=== PATIENT | male | born 1990 | race Caucasian/White ===

== ENCOUNTER 2016-12-09 17:22 | Inpatient (IN) | payer OTHER ==
[~2016-12-09] VITALS: Ht 172.7 cm; Wt 76.0 kg
[~2016-12-09 17:22] MED LIST: AMPH30TA3 PO; AMT25T PO; CIPR-231 PO; DEXT30TA12 PO; DIVA500T14 PO; Dexamethasone 4 mg/mL Inj ONE; GUAN1TAB26 PO; LURA120T PO; METR250T PO; OXYC5TAB72 PO; Ondansetron 2 mg/mL 2 mL Inj ONE; Propofol 10,000 mCg/mL 20 mL Inj ONE
[2016-12-09 17:26] VITALS: BP 141/85; PULSE 116; RESP 16; O2SAT 100
[2016-12-09 18:10] LABS: BASOPHILS % (AUTO) 0.1 % (0-3); EOSINOPHILS % (AUTO) 0.2 % (0-5); MONOCYTES % (AUTO) 7.2 % (4-12); Mean Corpuscular Hemoglobin 30.2 pg (27.0-35.0); Mean Corpuscular Volume 92.3 fL (81-100); NEUTROPHILS % (AUTO) 79.6 % (40-74); Platelet Count 355 bil/L (150-400)
[2016-12-09 18:31] LABS: Magnesium 1.8 mg/dL (1.6-2.6)
[2016-12-09 20:40] VITALS: BP 114/73; PULSE 121; RESP 22; O2SAT 97
--- NOTE | 2016-12-09 20:59 | ED.REPORT ---
HPI-General Illness Date of Service Dec 09, 2016 ED Provider: Steve Loving MD Patient is a 26 year old male with a history of Crohn's disease with a history of bowel section, with a known john-rectal fistulas with seton drain who presents to the ED with increased pain and drainage associated with his fistula since November 27. He reports associated intermittent fever. The drainage ranges from clear, to green, to bloody. The seton was placed by Dr. Tejada in the end of October, and he is the surgeon that follows his case. This was placed in order to prevent recurrent abscess. He is seen by Dr. Keller for GI.He is not currently on any steroids. He denies nausea, vomiting, abdominal pain, or other symptoms. Nursing Notes Stated Complaint: FISTULA Chief Complaint: General Complaint Nursing Notes Reviewed: Yes Allergies: Coded Allergies: adalimumab (Verified Allergy, Unknown, 09/30/16) Scheduled Amitriptyline (Amitriptyline) 25 Mg Tab 25 MG PO HS Amphet Asp/Amphet/D-Amphet (Adderall) 30 Mg Tablet 30 MG PO BID Ciprofloxacin (Cipro) 500 Mg Tablet 500 MG PO BID Dextroamphetamine/Amphetamine (Amphetamine Mixed Salts) 30 Mg Tablet 30 MG PO BID Divalproex ER (Divalproex ER) 500 Mg Tab.er.24h 1,000 MG PO DAILY Guanfacine ER (Guanfacine ER) 1 Mg Tab.er.24h 1 MG PO DAILY Lurasidone (Latuda) 120 Mg Tablet 120 MG PO DAILY Metronidazole (Flagyl) 250 Mg Tablet 500 MG PO Q8H Scheduled PRN oxyCODONE (oxyCODONE) 5 Mg Tablet 5 MG PO Q4H PRN PRN For Pain General Time Seen by MD: 20:37 Chief Complaint Other (john-rectal pain and drainage) Hx Obtained From: Patient Arrived By: Walk-in Sudden in Onset?: No Onset Occurred: More than a week ago... (2 weeks) Symptom Duration: Waxes and wanes Quality: Painful Severity: Current: Moderate Severity: Maximum: Severe Recent Healthcare: No recent doctor visit, No recent hospitalization, Previous surgery Similar Sx Previous: Yes Past Medical History Past Medical History Notes: GI: Dr. Dewey Perirectal Abscess -> OR 09/2014 Past Medical History Crohn's disease with bowel resection History of perirectal abscess and fissures Anxiety ADHD Past Surgical History Ileocolonic resection in 2005 for Crohn's Perianal abscess drainage Colonoscopy in 2013 seton drain placed October 2016 Family History Autoimmune diseases in mother's side of the family Reports: Cancer Smoking History Former Smoker Social History Alcohol Use: "Social" Drug Use: THC Other Social History: Good social support, Local resident Occupation Student Ambulatory Status Independent Review of Systems + rectal discharge Full Review of Systems Constitutional: Reports: Fever, Denies: Chills GI: Reports: Rectal pain, Denies: Nausea, Vomiting Complete sys rev & neg: except as marked. Physical Exam Vital Signs Vital Signs Date Time Temp Pulse Resp B/P Pulse Ox O2 Delivery O2 Flow Rate FiO2 12/09/16 20:40 38.1 121 22 114/73 97 Room Air 12/09/16 17:26 37.2 116 16 141/85 100 Room Air Initial VS: Reviewed Head / Eyes: Atraumatic, Normocephalic, PERRL ENT: Conjunctiva normal, No scleral icterus Neck: Supple, Full range of motion Respiratory: No respiratory distress Extremities: Vascular intact, Neuro intact Skin: Warm, Dry, No cyanosis Neurologic: Alert, Oriented, Nonfocal Psychiatric: Mood/affect normal, Behavior normal, Normal thought content General/Constitutional: Awake, Alert, No acute distress Cardiovascular: Heart rate NL, Cap refill not delayed Abdomen: Soft, Non-tender, No guarding, No rebound Rectum / Perineum: No gross blood two fistulas left john-rectal area. 3x1cm area of firmless left john-rectal area, adjacent to the lower fistula at 9 o-clock. tender on rectal exam, no abscess palpated on rectal exam. Interpretation & Diagnostics Lab Results Interpretation Result Diagram: 12/09/16 1756 12/09/16 1756 Test 12/09/16 17:56 12/09/16 18:05 12/09/16 20:32 White Blood Count 16.6th/mm3 (3.8-10.1) Red Blood Count 4.40mil/mm3 (4.40-5.80) Hemoglobin 13.3g/dL (13.8-17.2) Hematocrit 40.6% (41.0-50.0) Mean Corpuscular Volume 92.3fL (81-100) Mean Corpuscular Hemoglobin 30.2pg (27.0-35.0) Mean Corpuscular Hemoglobin Concent 32.8% (32.0-37.0) Red Cell Distribution Width 14.8% (12.3-15.4) Platelet Count 355bil/L (150-400) Neutrophils (%) (Auto) 79.6% (40-74) Lymphocytes (%) (Auto) 12.7% (14-46) Monocytes (%) (Auto) 7.2% (4-12) Eosinophils (%) (Auto) 0.2% (0-5) Basophils (%) (Auto) 0.1% (0-3) Sodium Level 136mEq/L (134-144) Potassium Level 4.4mEq/L (3.5-5.2) Chloride Level 96mEq/L (97-108) Carbon Dioxide Level 27mmol/L (18-29) Blood Urea Nitrogen 7mg/dL (6-20) Creatinine 0.69mg/dL (0.76-1.27) Estimat Glomerular Filtration Rate 145mL/min (>59) Glucose Level 133mg/dL (60-99) Calcium Level 9.2mg/dL (8.5-10.1) Magnesium Level 1.8mg/dL (1.6-2.6) Total Bilirubin 0.3mg/dL (0.0-1.2) Aspartate Amino Transf (AST/SGOT) 17U/L (0-50) Alanine Aminotransferase (ALT/SGPT) 16U/L (0-44) Alkaline Phosphatase 94U/L (25-150) Total Protein 7.9g/dL (6.4-8.4) Albumin 4.3g/dL (3.4-5.0) Lipase 14U/L (13-60) Lactic Acid Level 2.7mmol/L (0.4-2.0) Hold Gutierrez Top Tube Received (Received) Hold Urine Received (Received) CT Abd / Pelvis Interpretation IMPRESSION: Postinflammatory scarring is present in the perirectal/perianal soft tissues as has been previously the case in this patient with documented multiple bilateral perirectal abscess and fistula formation. Currently a definite drainable fluid collection is not seen. Please note that MR scanning without and with contrast provides a more accurate assessment for possible early phase of recurrent disease, and prior MR scanning of the pelvis has been performed for this patient as recently as 09/27/16. Dictated by: Wicho Sheffield M.D. on 12/09/2016 at 21:52 Approved by: Wicho Sheffield M.D. on 12/09/2016 at 21:52 Study type: Abdominal CT no contrast Interpretation / Wet Read by: Interpret - Radiologist Re-Eval/Medical Decision Med Decision/Clinical Course 26-year-old male history of Crohn's disease on Remicade, chronic perirectal abscesses with seton drain in place presenting with perirectal pain. He has a 1-3 cm firm area right perirectal which is tender. No active drainage. White blood cell count 16,000. Lactate is 2.7. Low-grade fever. Discussed with Dr. Daniels, Gen. surgery who requested admission to hospitalist team and surgery will see him in the morning. Start patient on Zosyn. Blood cultures prior to antibiotics. Discussed with hospitalist Dr Hansen who accepts admission. Source of Hx: Old records Time of Eval: 22:14 Patient Status: Condition improved Re-Evaluation/Progress Note: Informed the patient of the CT scan and lab results. Patient understands and agrees with the plan to be admitted to the hospital. All questions were addressed. Consultation #1: Referral / Consult Name: Raya Daniels MD Consulted With: Surgeon Call Returned at: 22:10 Architectural Examiner: Will see patient, Agrees with eval, Agrees with plan Note: Spoke with Dr. Daniels, surgeon, about the patient's case and CT scan. Admit the patient to the hospital. She will act as consult, admit to hospitalist. Consultation #2: Referral / Consult Name: Mathew Hansen MD Consulted With: Hospitalist Call Returned at: 22:50 Architectural Examiner: Will see patient, Agrees with eval, Agrees with plan, Accepts admit Note: Spoke with Dr. Hansen, hospitalist, who agrees to accept admit. Counseled Regarding: Diagnosis, Lab results, Need for admission Discharge & Departure Primary Impression: Fistula, perirectal Additional Impression: Crohns disease Gastrointestinal tract location: unspecified location Digestive disease complication type: with fistula Qualified Code: K50.913 - Crohn's disease, unspecified, with fistula Disposition: ADMITTED TO HOSPITAL (ERASED) Discharge Condition All VS Reviewed: Yes Condition: Stable Referrals: Tian Emmanuel MD (PCP) Scribe Attestation Portions of this note were transcribed by Annie Baca. I, Dr. Loving personally performed the history, physical exam and medical decision-making; I reviewed and confirmed the accuracy of the information in the transcribed note. Signed by: Jose Antonio Valenzuela, 12/09/2016 [id number] copies to: Tian Emmanuel MD, Ben M MD Dec 09, 2016 20:59 Annie Baca Dec 09, 2016 21:05
[2016-12-09] MEDS ORDERED: Ondansetron 2 mg/mL 2 mL Inj IVPUSH PRN (21:00)
[2016-12-09] MEDS ORDERED: 0.9% Sodium Chloride 1,000 ML IV ONE ×2 (21:02→22:55)
--- NOTE | 2016-12-09 21:53 | DRSVH ---
PROCEDURE: CT ABDOMEN AND PELVIS WITH CONTRAST (PNL-7102) INDICATIONS: perirectal abscess fistula TECHNIQUE: After the administration of intravenous contrast, 5 mm thick sections acquired from the diaphragm to the symphysis. 5 mm coronal and sagittal reformats were acquired. For radiation dose reduction, the following was used: automated exposure control, adjustment of mA and/or kV according to patient siz e. COMPARISON: [facility], MR, MR PELVIS W&WO CON, 09/27/2016[facility] 17[facility]WO [facility], 08/26/2016, 8:03. [facility], CT, CT ABD PELVIS W CON, 016, 16:36. [facility], CT, CT PELVIS W CON, 09/30/2016, 21:24. FINDINGS: Image quality: Excellent. ABDOMEN: Lung bases: Lung bases are clear. Heart size is normal. Solid organs: Liver and spleen are normal in size and enhancement. Gallbladder appears normal. Onofre iary system is non dilated. Pancreas enhances normally. No adrenal nodules. Kidneys demonstrate no rmal size and enhancement, without hydronephrosis. Peritoneum and bowel: Bowel loops demonstrate normal wall thickness and caliber. No free fluid or a ir. Nodes and vessels: No retroperitoneal or mesenteric adenopathy by size criteria. Aorta and inferior vena cava are normal in size. Miscellaneous: No ventral hernias. PELVIS: Genitourinary: Bladder wall thickness is normal. Miscellaneous: No inguinal hernias or adenopathy. The patient has undergone treatment including jan inage procedures for bilateral perirectal fistula and abscess formation in the past. This results in residual scar tissue, and soft tissue stranding within the subcutaneous fat and perirectal fat as molina s been previously the case. A new focus of abnormal fluid collection is not seen. Bones: No suspicious bony lesions. No vertebral body compression fractures. IMPRESSION: Postinflammatory scarring is present in the perirectal/perianal soft tissues as has been previously the case in this patient with documented multiple bilateral perirectal abscess and fistul a formation. Currently a definite drainable fluid collection is not seen. Please note that MR scann ing without and with contrast provides a more accurate assessment for possible early phase of recurre nt disease, and prior MR scanning of the pelvis has been performed for this patient as recently as . Dictated by: Wicho Sheffield M.D. on 12/09/2016 at 21:52 Approved by: Wicho Sheffield M.D. on 12/09/2016 at 21:52
[2016-12-09] MEDS ORDERED: Piperacillin-Tazo 3.375 Gm Inj 3.375 GM in Dextrose 5% Minibag Plus 50 ML IV ONE (22:55)
[2016-12-09] MEDS ORDERED: Alum-Mag Hydrox-Simeth 30 mL Suspension PO PRN (22:55)
[2016-12-09 23:18] LABS: APPEARANCE,URINE CLEAR (CLEAR,HAZY); COLOR,URINE YELLOW (YELLOW); OCCULT BLOOD,URINE TRACE (NEGATIVE); UROBILINOGEN,URINE NORMAL (NORMAL)
[2016-12-10] VITALS (12 sets, daily range): BP systolic 103–135; BP diastolic 65–86; PULSE 64–98; RESP 14–17; O2SAT 96–100
[2016-12-10] MEDS ORDERED: 0.9% Sodium Chloride 1,000 ML IV SCH (00:27)
[2016-12-10] MEDS ORDERED: Polyethylene Glycol (PEG) 17 Gm Powder PO PRN (00:30)
--- NOTE | 2016-12-10 01:18 | PCM.HPMED ---
Subjective Date of Service Dec 10, 2016 Primary Provider: Admitting Physician: Mathew Hansen MD Primary Care Physician: Tian Emmanuel MD Attending Physician: Mathew Hansen MD Chief Complaint: desiree-rectal abscess History of Present Illness: 26 year old male with a history of Crohn's disease s/p bowel section, desiree- rectal fistula/abscess with seton drains, bipolar with psychosis, and ADHD who presents to the ED with increased pain and drainage associated with his fistula since November 27. He reports he had flulike symptoms starting on November 27 and felt that his coughing worsened his desiree-rectal fistula. He reports his flulike symptoms did improve but the perirectal area continue to have increased drainage, and he continued to have intermittent fevers and chills. His pain gradually increased and was intolerable today so he came in for evaluation. He currently denies any nausea, vomiting, abdominal pain, urinary symptoms. He reports he did have a manic episode last week which lasted for the whole week, but that has since resolved. Currently denies any SI/HI or hallucinations. In the ED, he was tachycardic in the 120s with mildly elevated blood pressure and a temperature of 38.1c. He was given 2 L of normal saline, blood cultures were drawn, and Zosyn was started. His lactic acid was 2.7 on presentation. He had a white count of 16.6 with 79.6% neutrophils. UA was unremarkable. CT of abdomen and pelvis was unremarkable Dr. Daniels from general surgery was consulted and will evaluate the patient in the AM. Review of Systems: No chest pain, nausea, vomiting, abdominal pain, chills, sweats, bleeding, rashes, seizures, headaches, depression, new allergies, dysuria. Allergies Coded Allergies: adalimumab (Verified Allergy, Unknown, 09/30/16) [facility] Crohn's disease status post bowel resection History of perirectal abscess and fistula with seton drains placed Anxiety ADHD Bipolar with psychosis Past Surgical History Ileocolonic resection in 2005 for Crohn's Perianal abscess drainage Colonoscopy in 2013 seton drain placed October 2016 Family History Autoimmune diseases in mother's side of the family Reports: Cancer Social History Hx Alcohol Use: Yes (occasionally) Hx Substance Use: Yes Hx Tobacco Use: Yes (Smoking X 1-2 years, varying amounts.) Smoking Status: Former Smoker Exam Vital Signs Vital Sign - Last Date Time Temp Pulse Resp B/P Pulse Ox O2 Delivery O2 Flow Rate FiO2 12/09/16 23:43 98 18 112/68 99 Room Air 12/09/16 20:40 38.1 Intake and Output 12/09/16 12/09/16 12/10/16 Cumulative From/Thru 15:00 23:00 07:00 12/09/16 17:26 - 12/09/16 23:49 Intake Total 1000 ml 1000 ml 2000 ml Balance 1000 ml 1000 ml 2000 ml Intake IV Total 1000 ml 1000 ml 2000 ml Exam General: Well-developed male in no acute distress Eyes: Sclera anicteric, PERRL Neck: Soft, nontender, full range of motion CV: Tachycardic but regular, no M/R/C noted Respiratory: CTAB, normal respiratory effort Abd: Soft, nontender, nondistended Msk: Muscle strength grossly intact and equal bilaterally : Large firm indurated region on the left perirectal area with serosanguineous and bloody drainage. External hemorrhoids noted. Neuro: No focal weakness, alert and oriented Derm: Skin is warm, dry, intact Psych: Appropriate mood and affect Lab and Diagnostics Result Diagram: 12/09/16175512/09/161755 X-Rays, CTs and MRIs PROCEDURE: CT ABDOMEN AND PELVIS WITH CONTRAST ([id number]) INDICATIONS: perirectal abscess fistula TECHNIQUE: After the administration of intravenous contrast, 5 mm thick sections acquired from the diaphragm to the symphysis. 5 mm coronal and sagittal reformats were acquired. For radiation dose reduction, the following was used: automated exposure control, adjustment of mA and/or kV according to patient size. COMPARISON: [facility], MR, MR PELVIS W&WO CON, 09/27/2016, 17:25. [facility], MR, MR PELVIS W&WO CON, 08/26/2016, 8:03. [facility], CT, CT ABD PELVIS W CON, 12/16/2015, 16:36. [facility], CT, CT PELVIS W CON, 09/30/2016, 21:24. FINDINGS: Image quality: Excellent. ABDOMEN: Lung bases: Lung bases are clear. Heart size is normal. Solid organs: Liver and spleen are normal in size and enhancement. Gallbladder appears normal. Biliary system is non dilated. Pancreas enhances normally. No adrenal nodules. Kidneys demonstrate normal size and enhancement , without hydronephrosis. Peritoneum and bowel: Bowel loops demonstrate normal wall thickness and caliber. No free fluid or air. Nodes and vessels: No retroperitoneal or mesenteric adenopathy by size criteria. Aorta and inferior vena cava are normal in size. Miscellaneous: No ventral hernias. PELVIS: Genitourinary: Bladder wall thickness is normal. Miscellaneous: No inguinal hernias or adenopathy. The patient has undergone treatment including drainage procedures for bilateral perirectal fistula and abscess formation in the past. This results in residual scar tissue, and soft tissue stranding within the subcutaneous fat and perirectal fat as has been previously the case. A new focus of abnormal fluid collection is not seen. Bones: No suspicious bony lesions. No vertebral body compression fractures. IMPRESSION: Postinflammatory scarring is present in the perirectal/perianal soft tissues as has been previously the case in this patient with documented multiple bilateral perirectal abscess and fistula formation. Currently a definite drainable fluid collection is not seen. Please note that MR scanning without and with contrast provides a more accurate assessment for possible early phase of recurrent disease, and prior MR scanning of the pelvis has been performed for this patient as recently as 09/27/16. Assessment & Plan 26 year old male with a history of Crohn's disease s/p bowel section, desiree- rectal fistula/abscess with seton drains, bipolar with psychosis, and ADHD who presents to the ED with fever and pain and drainage associated with his desiree- rectal fistula since November 27. He is currently septic and is likely due to his desiree-rectal infection. Dseiree-rectal Fistula -Likely with Abscess formation with the indurated, tender, and erythematous desiree -rectal nodule. -IV Zosyn Q8h initiated in the ED on 12/10. Will continue the IV Zosyn. -Blood Cultures pending. -General Surgery will evaluate in the AM. -NPO status after midnight in anticipation of any procedures. -IV Dilaudid 0.5mg Q4h prn pain. Sepsis -As demonstrated by Fever, Tachycardia, elevatee wbc, and desiree-rectal abscess as source of infection. -Patient received 2 Liters of NS bolus in the ED and his vital improved. Will continue aggressive hydration until lactic acid improves. -Lactic Acid of 2.7 on presentation. Crohn's Disease, POA -Patient reports his Crohn's disease has been stable since starting Remicaide. Has not had any flare ups and BMS have been regular. -Continue Remicaide. Bipolar d/o with psychosis, POA -Stable, will continue patient's home medications ADHD, POA -Stable, will continue patient's home medications Tylenol prn fever/pain Anti-emetics prn Bowel regimen prn Pain Evaluation: Adequate Pain Control VTE Prophylaxis: Sub-Q Heparin (Unfractionated) Resuscitation Status: CPR: Attempt Resuscitation Attending Statement I saw Mr. Camargo on 12/09/15. I discussed his case with Dr. Griffin and my examination/plans are as described above. Easton Hansen MD copies to: Tian Emmanuel MD, Hong D DO Dec 10, 2016 01:18 Mathew Hansen MD Dec 10, 2016 03:45
[2016-12-10] MEDS ORDERED: ALPR0.5T8 PO (01:29)
[2016-12-10] MEDS: Heparin 5,000 Unit/mL Inj SUBQ SCH ×2 (01:33→08:13)
[2016-12-10] MEDS: HYDROmorphone 0.5 mg/0.5 mL iSecure Syringe IVPUSH PRN ×4 (01:39→15:15)
[2016-12-10] MEDS: 0.9% Sodium Chloride 1,000 ML IV SCH ×4 (01:45→23:54)
--- NOTE | 2016-12-10 03:36 | NUR ---
admit pt arrived to room 1028 via stretcher at 2345. he is A&Ox3, he was able to walk to the bed, steady on his feet. on RA. rated his pain in his L buttock at 6/10. IV dilaudid was given and effective. admit/med rec complete. home meds have been sent to pharmacy. pt oriented to room, call light and bed controls. care continues
--- NOTE | 2016-12-10 06:02 | NUR ---
pain pt complains of pain in his L buttock 6/10 in intensity. has taken IV dilaudid 1mg twice. he states that a tolerable level of pain for him is 3/10. the dilaudid is helpful but has not gotten up down to his tolerable level yet. abscess still draining yellow/greenish discharge. care continues.
[2016-12-10 07:31] LABS: BASOPHILS % (AUTO) 0.2 % (0-3); EOSINOPHILS % (AUTO) 0.5 % (0-5); MONOCYTES % (AUTO) 14.3 % (4-12); Mean Corpuscular Hemoglobin 30.3 pg (27.0-35.0); Mean Corpuscular Volume 93.8 fL (81-100); NEUTROPHILS % (AUTO) 54.7 % (40-74); Platelet Count 316 bil/L (150-400)
[2016-12-10] MEDS: Piperacillin-Tazo 3.375 Gm Inj 3.375 GM in Dextrose 5% Minibag Plus 50 ML IV SCH ×3 (08:14→17:03)
[2016-12-10] MEDS: Ondansetron 2 mg/mL 2 mL Inj IVPUSH PRN ×2 (08:45→14:19)
[2016-12-10] MEDS: Amphetamines (Mixed) 10 mg Tablet PO SCH ×2 (08:46→18:31)
--- NOTE | 2016-12-10 08:46 | CONS ---
[address] [address] CONSULTATION REPORT PATIENT: IZABEL BERNABE : 1990 MR#: [id number] ADMIT: 12/09/2016 JOB ID: [id number] DATE OF SERVICE: 12/10/2016 CHIEF COMPLAINT: Recurrent perirectal abscess. HISTORY OF PRESENT ILLNESS: The patient is a 26-year-old male well known to the surgical service. The patient had undergone prior perirectal abscess I and D's by Dr. Sunny Tejada in early August and also subsequent I and D's by Dr. Katie Campos in late August and early September. The patient reports starting on Remicade therapy and his last treatment was November 19. Ever since New ', the patient has been having discomfort on his left side and it is getting worse over the past two weeks. The patient presented to the emergency department last night due to pain and drainage on the left side. A CT scan was obtained but it showed no obvious fluid collection. The patient has been receiving IV antibiotics since last night. PAST MEDICAL HISTORY: 1. Ileocolic resection. 2. History of prior perirectal abscess and seton placement. 3. Anxiety. 4. ADHD. MEDICATIONS AT HOME: Include Alprazolam, amitriptyline, Adderall, divalproex, Latuda, oxycodone. ALLERGIES: ADALIMUMAB. SOCIAL HISTORY: The patient is a student. FAMILY HISTORY: Has autoimmune disease and cancer. REVIEW OF SYSTEMS: Positive for pain and drainage on the left side of his anus. PHYSICAL EXAMINATION: The patient is currently in a hospital bed in no acute distress. His temperature is 36.8, blood pressure 103/72, pulse is 78, respirations 16. His BMI is 25.5. Head is normocephalic, atraumatic. There is no scleral icterus. Neck is supple. Heart is a regular rate. Lungs are clear bilaterally. Abdomen is soft and nontender. Extremities shows no clubbing and no cyanosis. Examination of his perianal region does show two wounds. One is more cephalad and that is without any pain or tenderness or drainage. The more inferior one does show exquisite tenderness and with gentle palpation there is emanation of pus. Digital rectal examination is not done. ASSESSMENT: This is a 26-year-old male with Crohn disease, who has recently received Remicade therapy who now has worsening left-sided recurrent perirectal abscess. He should continue with IV antibiotics and we will take him to the OR today for another incision and drainage. The patient understands and wishes to proceed. FRED
--- NOTE | 2016-12-10 09:19 | PCM.HPANE ---
Patient Data Surgeon Admitting Provider:Mathew Hansen MD Attending Provider:Mathew Hansen MD Primary Care Physician:Tian Emmanuel MD Other Provider: Reason for Visit Perirectal Abscess Ht/WT & BMI Height (Feet): 5 Height (Inches): 8.00 Weight (Kilograms): 76.000 Body Mass Index 25.39 Allergies Coded Allergies: adalimumab (Verified Allergy, Unknown, 09/30/16) Past Anesthesia History Anesthesia History: Denies:: Abnormal Airway, Anesthesia Reactions, Difficult Intubation, Fam Anesthesia Reaction, Fam Malignant Hypertherm, Malignant Hyperthermia Diabetes History Hx Diabetes?: No MRSA MRSA: No Medications Active Scripts Ciprofloxacin (Cipro)500 Mg [id number] Mg PO BID #14 TABLET Ref 0 Prov:Katie Campos MD 10/02/16 Metronidazole (Flagyl)250 Mg [id number] Mg PO Q8H #21 TABLET Prov:Katie Campos MD 10/02/16 oxyCODONE 5 Mg Tablet5 Mg PO Q4H PRN For Pain #30 TABLET Prov:Carroll Le MD 09/24/16 Reported Medications Alprazolam 0.5 Mg Tablet0.5 Mg PO DAILY PRN For Anxiety or Agitation Ref 0 12/10/16 Guanfacine ER 1 Mg Tab.er.24h1 Mg PO DAILY 11/18/16 Amphet Asp/Amphet/D-Amphet (Adderall)30 Mg Vjlkyk46 Mg PO BID Ref 0 10/08/16 Divalproex ER 500 Mg Tab.er.24h1,000 Mg PO DAILY 09/23/16 Amitriptyline 25 Mg Tab25 Mg PO HS 09/23/16 Dextroamphetamine/Amphetamine (Amphetamine Mixed Salts)30 Mg [id number] Mg PO BID 09/23/16 Lurasidone (Latuda)120 Mg [id number] Mg PO DAILY 08/31/16 History History of ENT Problems?: Yes HEENT History: Positive for:: Sinus Problem (sinus infections) Denies:: Abnormal Airway Difficult Intubation Dysphagia Hearing Problem Hx of Heart Problems?: No Cardiovascular History: Positive for:: Irregular Heartbeat (PT REPORTS OCCAS PALPITATIONS) Denies:: AICD Atrial Fibrillation Chest Pain Congestive Heart Failure Hypertension Valvular Heart Disease Hx of Respiratory Problem?: No Respiratory History: Denies:: Asthma COPD Cough Hemoptysis Pneumonia Tuberculosis Use of C-PAP Machine (SUSPECT LINDSAY+-HAS HAD WORKUP BUT NO SLEEP STUDY YET) Hx Neurologic Problems?: No Neurological History: Denies:: CVA Dementia Seizures Hx of GI Problems?: Yes Gastrointestinal History: Positive for:: Gastrointestinal Bleeding Rectal Bleeding Denies:: Cirrhosis Diverticulitis Gastroesphageal Reflux Hiatal Hernia Other GI Pertinent History: crohns disease Hx of Problems?: No Male Hx: Denies:: Prostate Problems Scrotal Mass Testicular Surgery Skin History: Positive for:: History Skin Disorders? (RASH) Denies:: Pressure Ulcers Hx Musculoskeletal Problems?: No Musculoskeletal History: Positive for:: Back Injury Denies:: Joint Replacement Hx of Psycho/Social Problems?: Yes Psycho Social History: Positive for:: Anxiety Bipolar Disorder Hx Depression Denies:: Suicide Attempt Hx Surgeries?: Yes (small bowel resection, abscess drain placements) Hx Any Other Health Problems?: Yes Other History: Positive for:: Hospitalization (fistulas, all related to crohns ) Denies:: Cancer Endocrine Disease Thyroid Disease History Blood Transfusions: Positive for:: Accept Blood Products? Denies:: Blood Transfuse Reaction Blood Transfusions Hx Diabetes: No Hx Alcohol Use: YesAlcoholic Drinks Per Day: a beer a nightHx Substance Use: No Smoking Status: Former Smoker Have You Smoked inLast 12 mo: Yes (RECENTLY) Stop/Bang Treated for Sleep Apnea?: No Do You Have a CPAP Machine?: No S-Snoring: Do You Snore Loudly: Yes T-Tired: feel tired, fatigued: No O-Obsered: Observed not breath: No P-Blood Pressure: treated: No B- Body Mass Index > 35 kg/m2: No A- Age over 50: No N- Neck Large Circumference: No G- Gender Male: Yes LINDSAY Total Score: 2 LINDSAY Risk Assessment: Low Risk, <3 Yes Risk Assessment Category Category 1A: Patient has history of documented sleep apnea, and HAS NOT received any narcotic, sedative or anesthesia administration during this stay. Category 1B: Patient has history of documented sleep apnea, and HAS received any narcotic , sedative or anesthesia administration during this stay Category 2: Patient has SUSPECTED Obstructive Sleep Apnea, and HAS received any narcotic , sedative or anesthesia administration during this stay. Category 3: Patient has SUSPECTED Obstructive Sleep Apnea and HAS NOT received narcotic, sedative or anesthesia administration during this stay. Category 4: Outpatient in Procedural Areas with known sleep apnea or who screen positive for High Risk via the STOP/BANG questionnaire. Exam Exam Vital Signs Vital Signs Date Time Temp Pulse Resp B/P Pulse Ox O2 Delivery O2 Flow Rate FiO2 12/10/16 08:53 86 16 117/73 99 Room Air 12/10/16 05:24 36.8 78 16 103/72 98 Room Air General Appearance: Alert, Oriented X3, Cooperative, No Acute Distress HEENT/AIRWAY: MP 2 Lungs: Clear to Auscultation, Normal Air Movement Heart: Exam Unremarkable, Regular Rate/Rhythm, No Murmurs/Rubs/Gallops Meds/Labs/Diagnostics Admission Meds Current Medications Sodium Chloride 1,000 ml @ 0 mls/hr Q0M ONCE IV Last administered on 21:16; Start 12/09/16 at 21:02; Stop 12/09/16 at 21:03; Status DC Sodium Chloride 1,000 ml @ 0 mls/hr Q0M ONCE IV Last administered on 23:49; Start 12/09/16 at 22:55; Stop 12/09/16 at 22:56; Status DC Piperacillin Sod/ Tazobactam Sod 3.375 gm/Dextrose/ Water 50 ml @ 100 mls/hr ONCE ONCE IV Last administered on 12/09/16 23:38; Start 12/09/16 at 22:55; Stop 12/09/16 at 23:24; Status DC Piperacillin Sod/ Tazobactam Sod/ Dextrose/Water (Zosyn 3.375 Gm Inj/D5W Minibag Plus) 50 ml @ 12.5 mls/hr Q8 IV Last administered on 12/10/16 08:14; Start 12/10/16 at 08:30 Heparin Sodium (Porcine) 5000 unit 5,000 unit Q8 SUBQ Last administered on 12/10 01:33; Start 12/10/16 at 00:30 Sodium Chloride (Normal Saline) 1,000 ml @ 150 mls/hr Q6H40M IV Last administered on 12/10/16 07:34; Start 12/10/16 at 00:27 Amphetamine Aspartate/ Amphetam Sulf (Adderall) 30 mg BIDBL PO Last administered on 12/10/16 08:46; Start 12/10/16 at 08:00 Labs Test 12/09/16 17:56 12/09/16 18:05 12/09/16 20:32 12/10/16 00:50 Magnesium Level 1.8mg/dL (1.6-2.6) Total Bilirubin 0.3mg/dL (0.0-1.2) Aspartate Amino Transf (AST/SGOT) 17U/L (0-50) Alanine Aminotransferase (ALT/SGPT) 16U/L (0-44) Alkaline Phosphatase 94U/L (25-150) Total Protein 7.9g/dL (6.4-8.4) Albumin 4.3g/dL (3.4-5.0) Lipase 14U/L (13-60) Procalcitonin < 0.05ng/mL (See Comment) Hold Gutierrez Top Tube Received (Received) Urine Color Yellow (YELLOW) Urine Appearance Clear (CLEAR,HAZY) Urine pH 7.0 (5.0-8.0) Urine Specific [place] 1.005 (1.003-1.035) Urine Protein Negativemg/dL (NEG,TRACE) Urine Glucose (UA) Negativemg/dL (NEGATIVE) Urine Ketones Negativemg/dL (NEGATIVE) Urine Occult Blood Trace (NEGATIVE) Urine Nitrite Negative (NEGATIVE) Urine Bilirubin Negative (NEGATIVE) Urine Urobilinogen Normalmg/dL (NORMAL) Urine Leukocyte Esterase Negative (NEGATIVE) Urine RBC 0-2/hpf (0-2) Urine WBC 0-5/hpf (0-5) Urine Epithelial Cells Occasional/hpf (NONE-MOD) Urine Crystals None seen (NONE SEEN) Urine Bacteria None/hpf (NONE-FEW) Urine Hyaline Casts None/lpf (NONE) Urine Granular Casts None seen (NONE SEEN) Urine Waxy Casts None seen (NONE SEEN) Urine Red Blood Cell Casts None seen (NONE SEEN) Urine White Blood Cell Casts None seen (NONE SEEN) Urine Mucus None seen (None Seen) Urine Trichomonas None seen (NONE SEEN) Urine Yeast None (NONE SEEN) Urine Culture Reflexed Not indicated Hold Urine Received (Received) Lactic Acid Level 0.7mmol/L (0.4-2.0) Test 12/10/16 06:35 White Blood Count 12.8th/mm3 (3.8-10.1) Red Blood Count 3.89mil/mm3 (4.40-5.80) Hemoglobin 11.8g/dL (13.8-17.2) Hematocrit 36.5% (41.0-50.0) Mean Corpuscular Volume 93.8fL (81-100) Mean Corpuscular Hemoglobin 30.3pg (27.0-35.0) Mean Corpuscular Hemoglobin Concent 32.3% (32.0-37.0) Red Cell Distribution Width 14.9% (12.3-15.4) Platelet Count 316bil/L (150-400) Neutrophils (%) (Auto) 54.7% (40-74) Lymphocytes (%) (Auto) 30.1% (14-46) Monocytes (%) (Auto) 14.3% (4-12) Eosinophils (%) (Auto) 0.5% (0-5) Basophils (%) (Auto) 0.2% (0-3) Sodium Level 141mEq/L (134-144) Potassium Level 4.7mEq/L (3.5-5.2) Chloride Level 104mEq/L (97-108) Carbon Dioxide Level 27mmol/L (18-29) Blood Urea Nitrogen 4mg/dL (6-20) Creatinine 0.70mg/dL (0.76-1.27) Estimat Glomerular Filtration Rate 143mL/min (>59) Glucose Level 87mg/dL (60-99) Calcium Level 8.3mg/dL (8.5-10.1) Plan Impression Patient chart reviewed, patient interviewed and anesthestic plan with risks, benefits, and alternatives discussed, and informed consent obtained. NPO Status: >8hrs ASA Physical Status: ASA2 Mod Systemic Disease Anesthetic Plan: SAB Bene/Risks/Altern/Consents: Yes HP Complete Prior to Induction: Yes Finesse Brock MD Dec 10, 2016 09:19
[2016-12-10] MEDS ORDERED: fentaNYL-PF 50 mCg/mL 2 mL Inj ONE (14:48)
[2016-12-10] MEDS ORDERED: Morphine PF 1 mg/mL 10 mL Inj ONE (14:48)
[2016-12-10] MEDS ORDERED: HYDROmorphone 1 mg/mL Inj IVPUSH ONE (15:00)
--- NOTE | 2016-12-10 16:45 | NUR ---
TO OR Patient is saline locked. NPO since midnight. Transported to the OR via a gurney.
[2016-12-10] MEDS ORDERED: Lactated Ringer's 1,000 ML IV ONE ×2 (16:47→18:24)
[2016-12-10] MEDS ORDERED: Bupivacaine-MPF 0.5% 30 mL Inj INFILTRATE ONE (17:00)
[2016-12-10] MEDS ORDERED: Lactated Ringer's 500 ML IV PRN (17:14)
[2016-12-10] MEDS ORDERED: Lactated Ringer's 1,000 ML IV SCH (17:14)
[2016-12-10] MEDS ORDERED: fentaNYL-PF 50 mCg/mL 2 mL Inj IVPUSH PRN (17:15)
[2016-12-10] MEDS ORDERED: MetoCLOpramide 5 mg/mL 2 mL Inj IVPUSH PRN (17:15)
[2016-12-10] MEDS ORDERED: Labetalol 5 mg/mL 4 mL Inj IV PRN (17:15)
[2016-12-10] MEDS ORDERED: Atropine 0.4 mg/mL Inj IVPUSH PRN (17:15)
[2016-12-10] MEDS ORDERED: HYDROmorphone 1 mg/mL Inj IVPUSH PRN (17:15)
[2016-12-10] MEDS ORDERED: Dexamethasone 4 mg/mL Inj IVPUSH PRN (17:15)
[2016-12-10] MEDS ORDERED: hydrALAZINE 20 mg/mL Inj IVPUSH PRN (17:15)
[2016-12-10] MEDS ORDERED: Ondansetron 2 mg/mL 2 mL Inj IVPUSH PRN (17:15)
--- NOTE | 2016-12-10 17:52 | PCM.ANEP1 ---
Post Anesthesia Phase 1 PACU Phase 1 Assessment Vital Signs Vital Signs Date Time Temp Pulse Resp B/P Pulse Ox O2 Delivery O2 Flow Rate FiO2 12/10/16 14:50 36.3 75 17 117/66 99 Room Air Anesthetic Administered: GA, SAB Level of Alertness: Awake, talking Pain: No (will inform the nurse) Pain Scale Score: 0 Nausea or Vomiting: No Oxygen Delivery: Room Air Lungs: Clear to Auscultation, Normal Air Movement Dermatome Level: T12 (Symphysis Pubis) Summary sab working well post op no pain Finesse Brock MD Dec 10, 2016 17:52
--- NOTE | 2016-12-10 17:59 | PCM.ANEP2 ---
Post Anesthesia Evaluation ASA/CMS Post Anesthesia VS in Patient's Normal Range?: Yes Resp Stable; Airway Patent?: Yes CV Function & Hydration Stable: Yes Mental Status Recovered?: Yes Pain control Satisfactory?: Yes N/V Control Satisfactory?: Yes Finesse Brock MD Dec 10, 2016 17:59
--- NOTE | 2016-12-10 18:54 | NUR ---
POST-OP Received from PACU via a gurney. Able to transfer independently in bed. IVF ongoing. Complained of a headache. Rated it as 4/10. Tylenol PO administered. Patient denies nausea. Started on clear liquids. Denies SOB. Continuous PO2 is on at this time. Oriented to room and call light. (Pls. refer to post-op grid for assessments)
--- NOTE | 2016-12-10 19:01 | OP ---
[address] [address] OPERATIVE REPORT PATIENT: IZABEL BERNABE : 1990 MR#: [id number] ADMIT: 12/09/2016 JOB ID: [id number] DATE OF SURGERY: 12/10/2016 SURGEON: Ty Awan MD PRODUCTION GRIP: None. ANESTHESIA: Spinal and general. PREOPERATIVE DIAGNOSIS(ES): Left-sided perirectal abscess. POSTOPERATIVE DIAGNOSIS(ES): Left-sided perirectal abscess. PRINCIPAL PROCEDURE: Incision and drainage of left perirectal abscess. INDICATION FOR PROCEDURE: The patient is a 26-year-old male with Crohn disease who has had multiple prior perirectal abscesses status post drainage. FINDINGS: Principal finding is successful I and D of a left posterior perirectal abscess. The incision measured 2.6 x 2 cm in a cruciate fashion. PROCEDURE COURSE: The patient was brought to the operating table and was provided with at first a spinal anesthesia and subsequently a general anesthesia. The patient was given IV antibiotics and SCDs. A time-out was performed. The patient's legs were placed in a modified lithotomy position, exposing his anus. The area was prepped and draped in the usual sterile fashion. Next, along the left posterior aspect of his anus, at the site of purulent drainage, local anesthetic was injected and a cruciate incision was then placed using the scalpel. Using digital dissection, I was able to expose the abscess cavity towards the posterior aspect of the anus. The abscess cavity was then irrigated with saline and hemostasis was controlled using a combination of pressure and also cautery. Next, a 1-inch Nu Gauze was then packed into the abscess cavity towards the posterior aspect of the anus. The wound measured 2.6 x 2 cm in dimension. A sterile dressing was then placed over the wound. The patient was then extubated and taken to the recovery room in stable satisfactory condition.
--- NOTE | 2016-12-10 20:39 | PCM.PNMED ---
Subjective Date of Service Dec 10, 2016 Subjective Lef perirectal abscess drained pt seen post op, had epidural so no pain mild anxiety Exam Vital Signs Vital Sign - Last Date Time Temp Pulse Resp B/P Pulse Ox O2 Delivery O2 Flow Rate FiO2 12/10/16 18:24 36.5 89 16 135/80 100 Room Air Intake and Output 12/09/16 12/09/16 12/10/16 Cumulative From/Thru 15:00 23:00 07:00 12/09/16 17:26 - 12/10/16 06:05 Intake Total 1000 ml 1576 ml 2576 ml Output Total 600 ml 600 ml Balance 1000 ml 976 ml 1976 ml Intake Oral 0 ml 0 ml IV Total 1000 ml 1576 ml 2576 ml Output Urine Total 600 ml 600 ml Exam NAD A and O x 3 CTAB RRR soft nt nd + BS SCD no edema of shins pleasant smiling Lab and Diagnostics Result Diagram: 12/10/16 0635 12/10/16 0635 X-Rays, CTs and MRIs PROCEDURE: CT ABDOMEN AND PELVIS WITH CONTRAST ([id number]) INDICATIONS: perirectal abscess fistula TECHNIQUE: After the administration of intravenous contrast, 5 mm thick sections acquired from the diaphragm to the symphysis. 5 mm coronal and sagittal reformats were acquired. For radiation dose reduction, the following was used: automated exposure control, adjustment of mA and/or kV according to patient size. COMPARISON: [facility], MR, MR PELVIS W&WO CON, 09/27/2016, 17:25. [facility], MR, MR PELVIS W&WO CON, 08/26/2016, 8:03. [facility], CT, CT ABD PELVIS W CON, 12/16/2015, 16:36. [facility], CT, CT PELVIS W CON, 09/30/2016, 21:24. FINDINGS: Image quality: Excellent. ABDOMEN: Lung bases: Lung bases are clear. Heart size is normal. Solid organs: Liver and spleen are normal in size and enhancement. Gallbladder appears normal. Biliary system is non dilated. Pancreas enhances normally. No adrenal nodules. Kidneys demonstrate normal size and enhancement , without hydronephrosis. Peritoneum and bowel: Bowel loops demonstrate normal wall thickness and caliber. No free fluid or air. Nodes and vessels: No retroperitoneal or mesenteric adenopathy by size criteria. Aorta and inferior vena cava are normal in size. Miscellaneous: No ventral hernias. PELVIS: Genitourinary: Bladder wall thickness is normal. Miscellaneous: No inguinal hernias or adenopathy. The patient has undergone treatment including drainage procedures for bilateral perirectal fistula and abscess formation in the past. This results in residual scar tissue, and soft tissue stranding within the subcutaneous fat and perirectal fat as has been previously the case. A new focus of abnormal fluid collection is not seen. Bones: No suspicious bony lesions. No vertebral body compression fractures. IMPRESSION: Postinflammatory scarring is present in the perirectal/perianal soft tissues as has been previously the case in this patient with documented multiple bilateral perirectal abscess and fistula formation. Currently a definite drainable fluid collection is not seen. Please note that MR scanning without and with contrast provides a more accurate assessment for possible early phase of recurrent disease, and prior MR scanning of the pelvis has been performed for this patient as recently as 09/27/16. Assessment & Plan 26 year old male with a history of Crohn's disease s/p bowel section, john- rectal fistula/abscess with seton drains, bipolar with psychosis, and ADHD who presents to the ED with fever and pain and drainage associated with his john- rectal fistula since November 27 admitted for sepsis LEFt John-rectal Fistula, surgical treated - s/p I and D Dr. Fabián Awan 12/10/2016 -IV Zosyn started 12/10.. -Blood Cultures pending. -IV Dilaudid 0.5mg Q4h prn pain. Sepsis, resolving -As demonstrated by Fever, Tachycardia, elevated wbc, and john-rectal abscess as source of infection. - 2 L NS ED w/ vital improved. -Lactic Acid of 2.7 on presentation. Crohn's Disease, POA -Patient reports his Crohn's disease has been stable since starting Remicaide. --Has not had any flare ups and BMS have been regular. Bipolar d/o with psychosis, POA -Stable, will continue patient's home medications / depakote ADHD, POA -Stable, will continue patient's home medications / /adderall anxiety --home prn xanax Tylenol prn fever/pain Anti-emetics prn Bowel regimen prn VTE Prophylaxis: Sub-Q Heparin (Unfractionated) VTE Mechanical Devices: Intermittant Pneumatic CD Resuscitation Status: CPR: Attempt Resuscitation Kristian Kessler MD Dec 10, 2016 20:39
[2016-12-10] MEDS: ALPRAZolam 0.5 mg Tablet PO PRN (21:23)
[2016-12-10] MEDS: Divalproex (QD) 500 mg ER24 Tablet PO SCH (21:24)
--- NOTE | 2016-12-10 22:48 | NUR ---
urinary retention pt still having numbness from spinal anesthesia. he started complaining of bladder pain and inability to void. bladder scan showed >999. hospitalist consulted who gave the order for nurse to place lyon catheter. lyon cath placed pt tolerated procedure well. lyon draining to gravity and pt states relief from the pressure and pain. will continue to monitor.
[2016-12-11] MEDS: HYDROmorphone 1 mg/mL Inj IVPUSH PRN ×6 (00:01→22:13)
[2016-12-11 00:30] VITALS: BP_SYST 115; BP_SYST 129; BP_DIAS 66; BP_DIAS 71; PULSE 65; PULSE 89; RESP 16; O2SAT 93; O2SAT 98
[2016-12-11] MEDS: Piperacillin-Tazo 3.375 Gm Inj 3.375 GM in Dextrose 5% Minibag Plus 50 ML IV SCH ×3 (00:50→16:24)
[2016-12-11] MEDS: Heparin 5,000 Unit/mL Inj SUBQ SCH ×3 (00:56→16:24)
[2016-12-11] MEDS: 0.9% Sodium Chloride 1,000 ML IV SCH ×4 (03:07→21:09)
[2016-12-11 05:35] VITALS: BP 106/64; PULSE 65; RESP 16; O2SAT 100
[2016-12-11] MEDS: Amphetamines (Mixed) 10 mg Tablet PO SCH ×2 (07:37→12:49)
[2016-12-11] MEDS: HYDROcodone-APAP 5-325 mg Tablet PO PRN ×3 (07:38→14:58)
[2016-12-11 07:51] LABS: Mean Corpuscular Hemoglobin 30.2 pg (27.0-35.0); Mean Corpuscular Volume 92.7 fL (81-100)
--- NOTE | 2016-12-11 08:32 | PCM.PNSURG ---
Subjective Visit Information: Reason for Visit Perirectal Abscess Surgery/Surgery Date I & D LEFT PERIRECTAL ABCESS 12/10/16 Post-Op Day # Date of Admission: Dec 09, 2016 at 22:46 Hospital Day # Subjective: urinary retention overnight, lyon placed, different kind of pain now Objective Objective Awake in bed Lyon in place Perirectal dressing in place Vital Sign- Last 8 Hours Date Time Temp Pulse Resp B/P Pulse Ox O2 Delivery O2 Flow Rate FiO2 12/11/16 05:35 36.5 65 16 106/64 100 Room Air 12/11/16 00:30 36.6 65 16 115/71 98 Room Air Intake and Output- Last 8 Hour 12/11/16 Cumulative From/Thru 07:00 12/09/16 17:26 - 12/10/16 18:50 Intake Total 5226 ml Output Total 2920 ml Balance 2306 ml Intake Oral 0 ml IV Total 5226 ml Output Urine Total 2920 ml Result Diagram: 12/11/16 0645 12/10/16 0635 Assessment & Plan Impression POD #1 s/p I & D L perirectal abscess Crohn's Dz Problems: Plan Remove lyon Packing to be replaced today and once daily Abx F/U with Dr. Tejada next week VTE Prophylaxis: Sub-Q Heparin (Unfractionated) Resuscitation Status: CPR: Attempt Resuscitation Ty Awan MD Dec 11, 2016 08:32
[2016-12-11] MEDS: ALPRAZolam 0.5 mg Tablet PO PRN (10:40)
--- NOTE | 2016-12-11 12:18 | PCM.PNMED ---
Subjective Date of Service Dec 11, 2016 Subjective Patient is tolerating general diet without any problems. He did have some urinary retention most likely secondary to the epidural injection and as per Dr. Awan , Mckee was placed. Exam Vital Signs Vital Sign - Last Date Time Temp Pulse Resp B/P Pulse Ox O2 Delivery O2 Flow Rate FiO2 12/11/16 05:35 36.5 65 16 106/64 100 Room Air Intake and Output 12/10/16 12/10/16 12/11/16 Cumulative From/Thru 15:00 23:00 07:00 12/09/16 17:26 - 12/10/16 18:50 Intake Total 2650 ml 5226 ml Output Total 2320 ml 2920 ml Balance 330 ml 2306 ml Intake Oral 0 ml 0 ml IV Total 2650 ml 5226 ml Output Urine Total 2320 ml 2920 ml Exam Constitutional: Young male in no acute distress Head: Normocephalic atraumatic Chest: Clear to auscultation Cor: Regular rate and rhythm S1-S2 without murmur Abdomen: Soft nontender bowel sounds present Lab and Diagnostics Laboratory Tests 72 Hours Test 12/09/16 17:56 12/09/16 18:05 12/09/16 20:32 12/10/16 00:50 White Blood Count 16.6th/mm3 (3.8-10.1) Red Blood Count 4.40mil/mm3 (4.40-5.80) Hemoglobin 13.3g/dL (13.8-17.2) Hematocrit 40.6% (41.0-50.0) Mean Corpuscular Volume 92.3fL (81-100) Mean Corpuscular Hemoglobin 30.2pg (27.0-35.0) Mean Corpuscular Hemoglobin Concent 32.8% (32.0-37.0) Red Cell Distribution Width 14.8% (12.3-15.4) Platelet Count 355bil/L (150-400) Neutrophils (%) (Auto) 79.6% (40-74) Lymphocytes (%) (Auto) 12.7% (14-46) Monocytes (%) (Auto) 7.2% (4-12) Eosinophils (%) (Auto) 0.2% (0-5) Basophils (%) (Auto) 0.1% (0-3) Sodium Level 136mEq/L (134-144) Potassium Level 4.4mEq/L (3.5-5.2) Chloride Level 96mEq/L (97-108) Carbon Dioxide Level 27mmol/L (18-29) Blood Urea Nitrogen 7mg/dL (6-20) Creatinine 0.69mg/dL (0.76-1.27) Estimat Glomerular Filtration Rate 145mL/min (>59) Glucose Level 133mg/dL (60-99) Calcium Level 9.2mg/dL (8.5-10.1) Magnesium Level 1.8mg/dL (1.6-2.6) Total Bilirubin 0.3mg/dL (0.0-1.2) Aspartate Amino Transf (AST/SGOT) 17U/L (0-50) Alanine Aminotransferase (ALT/SGPT) 16U/L (0-44) Alkaline Phosphatase 94U/L (25-150) Total Protein 7.9g/dL (6.4-8.4) Albumin 4.3g/dL (3.4-5.0) Lipase 14U/L (13-60) Procalcitonin < 0.05ng/mL (See Comment) Lactic Acid Level 2.7mmol/L (0.4-2.0) 0.7mmol/L (0.4-2.0) Hold Gutierrez Top Tube Received (Received) Urine Color Yellow (YELLOW) Urine Appearance Clear (CLEAR,HAZY) Urine pH 7.0 (5.0-8.0) Urine Specific [place] 1.005 (1.003-1.035) Urine Protein Negativemg/dL (NEG,TRACE) Urine Glucose (UA) Negativemg/dL (NEGATIVE) Urine Ketones Negativemg/dL (NEGATIVE) Urine Occult Blood Trace (NEGATIVE) Urine Nitrite Negative (NEGATIVE) Urine Bilirubin Negative (NEGATIVE) Urine Urobilinogen Normalmg/dL (NORMAL) Urine Leukocyte Esterase Negative (NEGATIVE) Urine RBC 0-2/hpf (0-2) Urine WBC 0-5/hpf (0-5) Urine Epithelial Cells Occasional/hpf (NONE-MOD) Urine Crystals None seen (NONE SEEN) Urine Bacteria None/hpf (NONE-FEW) Urine Hyaline Casts None/lpf (NONE) Urine Granular Casts None seen (NONE SEEN) Urine Waxy Casts None seen (NONE SEEN) Urine Red Blood Cell Casts None seen (NONE SEEN) Urine White Blood Cell Casts None seen (NONE SEEN) Urine Mucus None seen (None Seen) Urine Trichomonas None seen (NONE SEEN) Urine Yeast None (NONE SEEN) Urine Culture Reflexed Not indicated Hold Urine Received (Received) Test 12/10/16 06:35 12/11/16 06:45 White Blood Count 12.8th/mm3 (3.8-10.1) 10.9th/mm3 (3.8-10.1) Red Blood Count 3.89mil/mm3 (4.40-5.80) 4.24mil/mm3 (4.40-5.80) Hemoglobin 11.8g/dL (13.8-17.2) 12.8g/dL (13.8-17.2) Hematocrit 36.5% (41.0-50.0) 39.3% (41.0-50.0) Mean Corpuscular Volume 93.8fL (81-100) 92.7fL (81-100) Mean Corpuscular Hemoglobin 30.3pg (27.0-35.0) 30.2pg (27.0-35.0) Mean Corpuscular Hemoglobin Concent 32.3% (32.0-37.0) 32.6% (32.0-37.0) Red Cell Distribution Width 14.9% (12.3-15.4) 14.1% (12.3-15.4) Platelet Count 316bil/L (150-400) 352bil/L (150-400) Neutrophils (%) (Auto) 54.7% (40-74) Lymphocytes (%) (Auto) 30.1% (14-46) Monocytes (%) (Auto) 14.3% (4-12) Eosinophils (%) (Auto) 0.5% (0-5) Basophils (%) (Auto) 0.2% (0-3) Sodium Level 141mEq/L (134-144) 134mEq/L (134-144) Potassium Level 4.7mEq/L (3.5-5.2) 4.8mEq/L (3.5-5.2) Chloride Level 104mEq/L (97-108) 99mEq/L (97-108) Carbon Dioxide Level 27mmol/L (18-29) 24mmol/L (18-29) Blood Urea Nitrogen 4mg/dL (6-20) 4mg/dL (6-20) Creatinine 0.70mg/dL (0.76-1.27) 0.54mg/dL (0.76-1.27) Estimat Glomerular Filtration Rate 143mL/min (>59) 193mL/min (>59) Glucose Level 87mg/dL (60-99) 126mg/dL (60-99) Calcium Level 8.3mg/dL (8.5-10.1) 8.7mg/dL (8.5-10.1) Result Diagram: 12/11/1664412/11/16644 X-Rays, CTs and MRIs PROCEDURE: CT ABDOMEN AND PELVIS WITH CONTRAST (PNL-7102) INDICATIONS: perirectal abscess fistula TECHNIQUE: After the administration of intravenous contrast, 5 mm thick sections acquired from the diaphragm to the symphysis. 5 mm coronal and sagittal reformats were acquired. For radiation dose reduction, the following was used: automated exposure control, adjustment of mA and/or kV according to patient size. COMPARISON: [facility], MR, MR PELVIS W&WO CON, 09/27/2016, 17:25. [facility], MR, MR PELVIS W&WO CON, 08/26/2016, 8:03. [facility], CT, CT ABD PELVIS W CON, 12/16/2015, 16:36. [facility], CT, CT PELVIS W CON, 09/30/2016, 21:24. FINDINGS: Image quality: Excellent. ABDOMEN: Lung bases: Lung bases are clear. Heart size is normal. Solid organs: Liver and spleen are normal in size and enhancement. Gallbladder appears normal. Biliary system is non dilated. Pancreas enhances normally. No adrenal nodules. Kidneys demonstrate normal size and enhancement , without hydronephrosis. Peritoneum and bowel: Bowel loops demonstrate normal wall thickness and caliber. No free fluid or air. Nodes and vessels: No retroperitoneal or mesenteric adenopathy by size criteria. Aorta and inferior vena cava are normal in size. Miscellaneous: No ventral hernias. PELVIS: Genitourinary: Bladder wall thickness is normal. Miscellaneous: No inguinal hernias or adenopathy. The patient has undergone treatment including drainage procedures for bilateral perirectal fistula and abscess formation in the past. This results in residual scar tissue, and soft tissue stranding within the subcutaneous fat and perirectal fat as has been previously the case. A new focus of abnormal fluid collection is not seen. Bones: No suspicious bony lesions. No vertebral body compression fractures. IMPRESSION: Postinflammatory scarring is present in the perirectal/perianal soft tissues as has been previously the case in this patient with documented multiple bilateral perirectal abscess and fistula formation. Currently a definite drainable fluid collection is not seen. Please note that MR scanning without and with contrast provides a more accurate assessment for possible early phase of recurrent disease, and prior MR scanning of the pelvis has been performed for this patient as recently as 09/27/16. Assessment & Plan 26 year old male with a history of Crohn's disease s/p bowel section, john- rectal fistula/abscess with seton drains, bipolar with psychosis, and ADHD who presents to the ED with fever and pain and drainage associated with his john- rectal fistula since November 27 admitted for sepsis LEFt John-rectal Fistula, surgical treated - s/p I and D Dr. Fabián Awan 12/10/2016 -IV Zosyn started 12/10.. -Blood Cultures and abscess cultures pending. -IV Dilaudid 0.5mg Q4h prn pain. Sepsis, resolving -As demonstrated by Fever, Tachycardia, elevated wbc, and john-rectal abscess as source of infection. - 2 L NS ED w/ vital improved. -Lactic Acid of 2.7 on presentation currently lactic acid has normalized Urinary retention, acute -Most likely secondary to epidural and Mckee is currently in place Crohn's Disease, POA -Patient reports his Crohn's disease has been stable since starting Remicaide. --Has not had any flare ups and BMS have been regular. Bipolar d/o with psychosis, POA -Stable, will continue patient's home medications / depakote ADHD, POA -Stable, will continue patient's home medications / /adderall anxiety --home prn xanax Tylenol prn fever/pain Anti-emetics prn Bowel regimen prn VTE Prophylaxis: Sub-Q Heparin (Unfractionated) VTE Mechanical Devices: Intermittant Pneumatic CD Resuscitation Status: CPR: Attempt Resuscitation Time spent 30 minutes Mena Wheat MD Dec 11, 2016 12:18
--- NOTE | 2016-12-11 13:35 | NUR ---
POST-OP PROGRESS Hydrocodone 2 tabs PO has been helpful for pain control. Dilaudid IVP administered prior to dressing change. Patient rated his pain as 2/10, which is tolerable for him. Tolerating liquids PO and his diet well. Denies nausea. No emesis noted. Denies SOB. Patient was able to ambulate in the room with SBA. Denies numbness/tingling over his BLE. Tolerated activity fairly. IFC d/cd per orders. Dressing changed. Care continues.
[2016-12-11 13:59] VITALS: BP 130/73; PULSE 75; RESP 16; O2SAT 100
--- NOTE | 2016-12-11 15:12 | NUR ---
Social Work: Screen D: Per EMR review pt is a 26 year old male admitted for perirectal abscess. Pt is Russ KEY. PCP is Tian Emmanuel MD. NOK Is Jason Camargo, Father, . Advanced directives information provided by [employer]. Readmit score is moderate, 4/8. Pt has a history of admission for perirectal abscess and underwent I&D yesterday with surgery. Pt has been I with ambulation post-OR. Pt lives in [place] with family. He is I at baseline. Pt does have a MH history with a recent manic episode. Pt denies SI/HI ideation to admitting MD. [employer] CLERK attempted to meet with pt at bedside to provided additional MH resources and to check-in. Pt declined to speak with [employer] CLERK. A: Pt who is I at baseline. P: Anticipate pt to discharge home via POV once medically stable; [employer] to continue to follow. ANITA Richards
[2016-12-11] MEDS: oxyCODONE-Acetamin 5-325 mg Tablet PO PRN (20:01)
[2016-12-11] MEDS: Divalproex (QD) 500 mg ER24 Tablet PO SCH (20:04)
[2016-12-11 21:55] VITALS: BP 133/77; PULSE 77; RESP 18; O2SAT 100
--- NOTE | 2016-12-11 22:18 | NUR ---
Pain Pt reports his perirectal pain at a 5. He was given percocet earlier this evening. Given .5mg IV dilaudid for breakthru pain. Will monitor for effectiveness
[2016-12-12] MEDS: Piperacillin-Tazo 3.375 Gm Inj 3.375 GM in Dextrose 5% Minibag Plus 50 ML IV SCH ×2 (00:14→08:53)
[2016-12-12] MEDS: oxyCODONE-Acetamin 5-325 mg Tablet PO PRN ×5 (00:22→20:13)
[2016-12-12] MEDS: Heparin 5,000 Unit/mL Inj SUBQ SCH ×4 (00:22→23:58)
[2016-12-12] MEDS: 0.9% Sodium Chloride 1,000 ML IV SCH ×2 (02:13→08:52)
[2016-12-12 04:14] VITALS: BP 117/61; PULSE 62; RESP 20; O2SAT 96
[2016-12-12] MEDS: Amphetamines (Mixed) 10 mg Tablet PO SCH ×2 (08:53→12:33)
[2016-12-12] MEDS ORDERED: metroNIDAZOLE 250 mg Tablet PO SCH (09:05)
[2016-12-12] MEDS: HYDROmorphone 1 mg/mL Inj IVPUSH PRN (09:06)
--- NOTE | 2016-12-12 09:58 | PROG NOTE ---
[address] [address] PROGRESS NOTE PATIENT: IZABEL BERNABE : 1990 MR#: [id number] ADMIT: 12/09/2016 JOB ID: [id number] DATE: 12/12/2016 SUBJECTIVE: The patient is seen postoperative day two from I and D of a left perirectal abscess. The patient is well known to me. He has a history of Crohn's disease with perianal disease. I have previously managed him with multiple draining setons. He has recently started on Remicade, and those setons have been sequentially removed. The majority of his disease is on the right side. He presented over the weekend with left perianal pain. He tells me the pain has actually been present since around . Dr. Awan took him to the operating room two days ago and drained the left perirectal abscess. The wound was then packed. The patient tells me he is feeling much better. In the last 24 hours, he has remained afebrile. Hemodynamically normal. This morning, alert, oriented and comfortable. His perianal area was inspected. The packing is removed. The right perianal region looks fine. On the left, there is a rather large open wound. There is no surrounding erythema. Packing was left out. ASSESSMENT AND PLAN: This is a 26-year-old man with Crohn's disease, on Remicade, who developed a new left-sided perianal abscess which was drained in the operating room two days ago. I am going to leave the packing out. I have encouraged him to utilize warm sitz baths twice a day as well as alter every bowel movement. I am stopping the Zosyn and going to start him on oral Flagyl. Encouraged him to be up and about. We will see how he does and, if the wound looks okay tomorrow, then potentially send him home. There is the possibility that he will need a seton placed. This is a manifestation of another fistula, but given that he is on the Remicade, it has been drained after discussion with the patient, I agree that we could just watch it for a little while and see whether or not we can get away without a seton.
[2016-12-12 10:06] LABS: BASOPHILS % (AUTO) 0.2 % (0-3); EOSINOPHILS % (AUTO) 0.6 % (0-5); Mean Corpuscular Hemoglobin 30.2 pg (27.0-35.0); Mean Corpuscular Volume 93.6 fL (81-100); NEUTROPHILS % (AUTO) 48.1 % (40-74); Platelet Count 357 bil/L (150-400)
[2016-12-12] MEDS: Ondansetron 2 mg/mL 2 mL Inj IVPUSH PRN (10:09)
--- NOTE | 2016-12-12 10:22 | NUR ---
Nausea Pt reported feeling nauseous; stated he thought it was from his medication, Latuda. He states it sometimes causes stomach upset. Administered 4 mg IVP Zofran. Care continues.
--- NOTE | 2016-12-12 11:42 | PCM.PNMED ---
Subjective Date of Service Dec 12, 2016 Subjective Patient divided by surgery this morning, had packing removed with mildly increased pain per patient. Denies fevers or chills. Plan for discharge home tomorrow if wound is okay and patient continues with sitz bath today. Zosyn changed to Flagyl per surgery this a.m. Exam Vital Signs Vital Sign - Last Date Time Temp Pulse Resp B/P Pulse Ox O2 Delivery O2 Flow Rate FiO2 12/12/16 04:14 36.4 62 20 117/61 96 Room Air Intake and Output 12/11/16 12/11/16 12/12/16 Cumulative From/Thru 15:00 23:00 07:00 12/09/16 17:26 - 12/12/16 06:43 Intake Total 2996 ml 2646 ml 2291 ml 03970 ml Output Total 3450 ml 2600 ml 1700 ml 77794 ml Balance -454 ml 46 ml 591 ml 2489 ml Intake Oral 1120 ml 1236 ml 650 ml 3006 ml IV Total 1876 ml 1410 ml 1641 ml 30180 ml Output Urine Total 3450 ml 2600 ml 1700 ml 69665 ml Exam Constitutional: Young male in no acute distress Head: Normocephalic atraumatic Chest: Clear to auscultation Cor: Regular rate and rhythm S1-S2 without murmur Abdomen: Soft nontender bowel sounds present Rectal-evaluated surgical site, clean dry and intact no significant discharge noted, general gauze noted at surgical site IVs and Medications Medications Reviewed: Medications were reviewed in detail Lab and Diagnostics Result Diagram: 12/12/1652 12/12/16 0952 X-Rays, CTs and MRIs PROCEDURE: CT ABDOMEN AND PELVIS WITH CONTRAST (PNL-7102) INDICATIONS: perirectal abscess fistula TECHNIQUE: After the administration of intravenous contrast, 5 mm thick sections acquired from the diaphragm to the symphysis. 5 mm coronal and sagittal reformats were acquired. For radiation dose reduction, the following was used: automated exposure control, adjustment of mA and/or kV according to patient size. COMPARISON: [facility], MR, MR PELVIS W&WO CON, 09/27/2016, 17:25. [facility], MR, MR PELVIS W&WO CON, 08/26/2016, 8:03. [facility], CT, CT ABD PELVIS W CON, 12/16/2015, 16:36. [facility], CT, CT PELVIS W CON, 09/30/2016, 21:24. FINDINGS: Image quality: Excellent. ABDOMEN: Lung bases: Lung bases are clear. Heart size is normal. Solid organs: Liver and spleen are normal in size and enhancement. Gallbladder appears normal. Biliary system is non dilated. Pancreas enhances normally. No adrenal nodules. Kidneys demonstrate normal size and enhancement , without hydronephrosis. Peritoneum and bowel: Bowel loops demonstrate normal wall thickness and caliber. No free fluid or air. Nodes and vessels: No retroperitoneal or mesenteric adenopathy by size criteria. Aorta and inferior vena cava are normal in size. Miscellaneous: No ventral hernias. PELVIS: Genitourinary: Bladder wall thickness is normal. Miscellaneous: No inguinal hernias or adenopathy. The patient has undergone treatment including drainage procedures for bilateral perirectal fistula and abscess formation in the past. This results in residual scar tissue, and soft tissue stranding within the subcutaneous fat and perirectal fat as has been previously the case. A new focus of abnormal fluid collection is not seen. Bones: No suspicious bony lesions. No vertebral body compression fractures. IMPRESSION: Postinflammatory scarring is present in the perirectal/perianal soft tissues as has been previously the case in this patient with documented multiple bilateral perirectal abscess and fistula formation. Currently a definite drainable fluid collection is not seen. Please note that MR scanning without and with contrast provides a more accurate assessment for possible early phase of recurrent disease, and prior MR scanning of the pelvis has been performed for this patient as recently as 09/27/16. Assessment & Plan 26 year old male with a history of Crohn's disease s/p bowel section, john- rectal fistula/abscess with seton drains, bipolar with psychosis, and ADHD who presents to the ED with fever and pain and drainage associated with his john- rectal fistula since November 27 admitted for sepsis LEFt John-rectal Fistula, surgical treated - s/p I and D Dr. Fabián Awan 12/10/2016 -IV Zosyn started 12/10 - switched to metronidazole by surgery team December 12, may consider additional gram-negative coverage given immunocompromise state if clinically decompensates - stable at this time -Blood Cultures and abscess cultures pending - no growth to date -IV Dilaudid 0.5mg Q4h prn pain. Sepsis, resolving -As demonstrated by Fever, Tachycardia, elevated wbc, and john-rectal abscess as source of infection. - 2 L NS ED w/ vital improved. -Lactic Acid of 2.7 on presentation currently lactic acid has normalized Urinary retention, acute - resolved -Most likely secondary to epidural and Mckee has been discontinued, patient voiding spontaneously Crohn's Disease, POA -Patient reports his Crohn's disease has been stable since starting Remicaide. --Has not had any flare ups and BMS have been regular. Bipolar d/o with psychosis, POA -Stable, will continue patient's home medications / depakote ADHD, POA -Stable, will continue patient's home medications / /adderall anxiety --home prn xanax Tylenol prn fever/pain Anti-emetics prn Bowel regimen prn VTE Prophylaxis: Sub-Q Heparin (Unfractionated) VTE Mechanical Devices: Intermittant Pneumatic CD Resuscitation Status: CPR: Attempt Resuscitation Time spent 30 minutes spent with evaluation and management, greater than 50% time spent [id number] Attending Statement Likely discharge home tomorrow if clinically stable, and pain as well as surgical site without evidence of worsening infection Carroll Swain DO Dec 12, 2016 11:42
[2016-12-12 12:31] VITALS: BP 134/75; PULSE 82; RESP 16; O2SAT 96
--- NOTE | 2016-12-12 14:51 | NUR ---
Wound eval order received.. Spoke with nurse who states MD removed packing to wound this morning and does not wound repacked. Wound covered with gauze at this time. Nurse states no further wound care needs from scientific specialist at this time. Will follow up if needed.
--- NOTE | 2016-12-12 16:06 | CONS ---
[address] [address] CONSULTATION REPORT PATIENT: IZABEL BERNABE : 1990 MR#: [id number] ADMIT: 12/09/2016 JOB ID: [id number] DATE OF SERVICE: 12/12/[address] Swain for this consult. REASON FOR CONSULTATION: Antibiotic management of perirectal abscess in a Crohn's disease patient. HISTORY OF PRESENT ILLNESS: The patient is an unfortunate 26-year-old gentleman with an 11-year history of Crohn's. He underwent one major small bowel resection in the past and has had many, many perirectal and perianal abscesses. He was admitted on this occasion, two days ago on December 10, with pain in the perirectal area along with some flu-like symptoms. He only had one overt fever that he is aware of, however, but he has had some chills. His pain was gradual but became so severe that he came in for evaluation and admission on December 10. At the time of admission, he was tachycardic, febrile, and had an elevated lactate. He was taken to the operating room by Dr. Tejada, and his perirectal abscess was drained and packed. Today, December 12, the packing was again removed. The patient has improved considerably since his surgery and reports diminished pain and resolution of any flu-like illness or fever or chills. The patient was on Zosyn during his first 48 hours or so and that has now been changed to Flagyl as a single drug. Dr. Swain consulted ID to see whether we thought additional antimicrobials might be necessary as the patient is, in fact, immunosuppressed because he is taking Remicade. PAST MEDICAL HISTORY: 1. Crohn's disease x11 years. 2. 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 3. Bipolar disorder with periods of psychosis. 4. ADHD. 5. Anxiety disorder. SOCIAL HISTORY: The patient is not currently employed. He does not smoke cigarettes having quit though only a few months ago, apparently. He drinks about one alcoholic drink a day. FAMILY HISTORY: Negative for tuberculosis. REVIEW OF SYSTEMS: Was done. As of today, the patient has no headache, no visual complaints. No sores in the mouth, no trouble swallowing. He denies cough, shortness of breath or chest pain. He is not having nausea, vomiting, or diarrhea. He denies pneumaturia. He denies dysuria, urgency, frequency. No swollen joints. He states that his perianal wound area is essentially nontender. PHYSICAL EXAMINATION: Reveals an afebrile gentleman. He was 38.1 when he was first admitted back on the night of the December 09, when he was in the ER. Since then, he has been afebrile, now 36.6, pulse 82, respiratory rate 16, blood pressure 134/75. Examination of the head unremarkable. Eyes without conjunctivitis. Oral cavity without thrush or pharyngitis. There is no gingival or oral ulcers seen. Neck without adenopathy. Lungs clear. Cardiac tones: Regular rate and rhythm without murmur. Abdomen soft and nontender. No hepatosplenomegaly. He does not have a Mckee catheter at this point. The perianal wound was just dressed by Surgery, so we did not remove the dressing. Extremities: Without edema, synovitis or cellulitis. Neurologically, the patient is intact. LABORATORIES: Include a white count which has dropped from 16,000 on admission to 9000 today. There is a completely normal diff. Creatinine 0.57. LFTs normal. Procalcitonin zero. Urinalysis had no white cells. Blood cultures negative. IMAGING: Includes a CT of the abdomen on admission which showed inflammatory scarring in the perirectal, perianal soft tissues. IMPRESSION: This patient is quite immunosuppressed by virtue of taking Remicade for his Crohn's. He was admitted on the night of December 09 through the emergency department with some flu-like symptoms which had persisted for a couple weeks in association with really severe perianal pain, which is typical of his perianal/perirectal abscesses. He has undergone the most important and definitive therapy in that the abscess has been drained. Ordinarily, in a healthy patient, once a perianal abscess is drained, antibiotics are not indicated. This patient, however, is not a healthy patient given his history of Crohn's, of course, and ongoing Remicade therapy. Remicade can predispose to a variety of serious complications of typical infections, including sometimes Staph aureus infections, and it is notable that this patient did have Staph aureus cultured as recently as August from another perirectal/perianal process. Whether or not this patient would benefit from some additional anti-Staph and possibly anti-gram negative coverage in addition to his Flagyl is unclear, but I think it would not be unreasonable, in view of his impending discharge, to add an oral drug such as cefdinir or cefuroxime to be given for a few days in conjunction with the Flagyl. RECOMMENDATIONS: 1. Consider addition of cefuroxime 500 b.i.d. or cefdinir to his Flagyl therapy. 2. I have paged Dr. Sunny Tejada, the surgeon, who knows this patient well, to see if he agrees with this plan. 3. I see no bar from the patient being discharged tomorrow on either oral Flagyl, as Dr. Tejada started today, or on oral Flagyl plus an oral cephalosporin as was mentioned that would provide coverage for MSSA as well as a limited repertoire of gram-negative rods. Thank you very much.
[2016-12-12] MEDS: ALPRAZolam 0.5 mg Tablet PO PRN (19:52)
[2016-12-12] MEDS: Divalproex (QD) 500 mg ER24 Tablet PO SCH (20:05)
[2016-12-12 20:22] VITALS: BP 118/73; PULSE 86; RESP 16; O2SAT 100
[2016-12-13] MEDS: oxyCODONE-Acetamin 5-325 mg Tablet PO PRN ×3 (00:30→12:13)
--- NOTE | 2016-12-13 03:25 | NUR ---
Pain/Dressing Change Pain complained of pain 3/10 on pain scale. Patient states he can manage 2-3/10. Pain medication administered. 4x4 and ABD pad changed on buttock fistula wound. Minimal drainage noted. VSS . Patient resting comfortably. Call light within reach.
[2016-12-13 05:20] VITALS: BP 106/61; PULSE 68; RESP 16; O2SAT 99
[2016-12-13 06:19] LABS: BASOPHILS % (AUTO) 0.3 % (0-3); EOSINOPHILS % (AUTO) 0.6 % (0-5); MONOCYTES % (AUTO) 12.5 % (4-12); Mean Corpuscular Hemoglobin 29.9 pg (27.0-35.0); Mean Corpuscular Volume 93.4 fL (81-100); NEUTROPHILS % (AUTO) 53.7 % (40-74); Platelet Count 364 bil/L (150-400)
[2016-12-13] MEDS: Amphetamines (Mixed) 10 mg Tablet PO SCH ×2 (08:02→12:07)
[2016-12-13] MEDS: Heparin 5,000 Unit/mL Inj SUBQ SCH (08:02)
[2016-12-13] MEDS: Ondansetron 2 mg/mL 2 mL Inj IVPUSH PRN (08:28)
--- NOTE | 2016-12-13 09:05 | PROG NOTE ---
[address] [address] PROGRESS NOTE PATIENT: IZABEL BERNABE : 1990 MR#: [id number] ADMIT: 12/09/2016 JOB ID: [id number] DATE: 12/13/2016 HISTORY OF PRESENT ILLNESS: The patient is seen in followup for his Crohn related perianal abscess. Yesterday I removed the packing and the patient continues with warm Sitz baths. He tells me that he is doing well with respect to pain. He has remained afebrile and hemodynamically normal over the last 24 hours. This morning, he is alert, oriented and comfortable. His perianal area was inspected. The abscess drain site remains with a gaping wound. There is no significant erythema or induration around the wound. There is no significant drainage. His white blood cell count this morning is 11.8, up slightly from 9.4 yesterday. ASSESSMENT AND PLAN: This is a 26-year-old man with Crohn disease with a history of a fistula in ano who presented over the weekend with a left-sided perianal abscess which was drained by one of my colleagues. Overall the patient seems to be doing well. From my perspective, he can go home today on Flagyl with sitz baths. With respect to the question of additional antibiotics, I do not have strong opinions. The Flagyl is being used to treat the Crohn disease rather than the abscess as adequate surgical drainage is what is truly required for the abscess. I have instructed the patient to let me know if he has recurrent pain or symptoms which would suggest that he will need a seton placed. Otherwise he can follow up with me in a week's time.
--- NOTE | 2016-12-13 10:51 | PCM.DIMED ---
Discharge Instructions Date of Service Dec 13, 2016 Dates of Hospitalization Dec 09, 2016 at 22:46 Discharge Diagnosis Discharge Diagnosis Perirectal abscess in setting of Crohn's disease Medication Instructions Take her medications as prescribed. Diet Other (as recommended per general surgery and would recommend low residue diet) Activity Limited until seen by PCP Call your provider Fever or Chills, Shortness of breath, Excessive diarrhea, Weakness (unilateral) Patient Instructions Provider: Sunny Tejada MD Follow-up in: 1 week (sooner if problems) Mena Wheat MD Dec 13, 2016 10:51
[2016-12-13] MEDS ORDERED: CEFU500T61 PO (10:58)
[2016-12-13] MEDS ORDERED: OXYC5CAP4 PO (11:01)
--- NOTE | 2016-12-13 11:06 | PCM.DC.MED ---
Discharge Summary Date of Service Dec 13, 2016 Dates of Hospitalization Date of Hospital Admission Dec 09, 2016 at 22:46 Date of Discharge: Dec 13, 2016 Providers: Admitting Physician: Mathew Hansen MD Primary Care Physician: Tian Emmanuel MD Attending Physician: Mathew Hansen MD Diagnosis at Time of Discharge Diagnosis at Time of Discharge Perirectal abscess in setting of Crohn's disease Consultations General surgery Procedures XRay, CTs & MRIs PROCEDURE: CT ABDOMEN AND PELVIS WITH CONTRAST ([id number]) INDICATIONS: perirectal abscess fistula TECHNIQUE: After the administration of intravenous contrast, 5 mm thick sections acquired from the diaphragm to the symphysis. 5 mm coronal and sagittal reformats were acquired. For radiation dose reduction, the following was used: automated exposure control, adjustment of mA and/or kV according to patient size. COMPARISON: [facility], MR, MR PELVIS W&WO CON, 09/27/2016, 17:25. [facility], MR, MR PELVIS W&WO CON, 08/26/2016, 8:03. [facility], CT, CT ABD PELVIS W CON, 12/16/2015, 16:36. [facility], CT, CT PELVIS W CON, 09/30/2016, 21:24. FINDINGS: Image quality: Excellent. ABDOMEN: Lung bases: Lung bases are clear. Heart size is normal. Solid organs: Liver and spleen are normal in size and enhancement. Gallbladder appears normal. Biliary system is non dilated. Pancreas enhances normally. No adrenal nodules. Kidneys demonstrate normal size and enhancement , without hydronephrosis. Peritoneum and bowel: Bowel loops demonstrate normal wall thickness and caliber. No free fluid or air. Nodes and vessels: No retroperitoneal or mesenteric adenopathy by size criteria. Aorta and inferior vena cava are normal in size. Miscellaneous: No ventral hernias. PELVIS: Genitourinary: Bladder wall thickness is normal. Miscellaneous: No inguinal hernias or adenopathy. The patient has undergone treatment including drainage procedures for bilateral perirectal fistula and abscess formation in the past. This results in residual scar tissue, and soft tissue stranding within the subcutaneous fat and perirectal fat as has been previously the case. A new focus of abnormal fluid collection is not seen. Bones: No suspicious bony lesions. No vertebral body compression fractures. IMPRESSION: Postinflammatory scarring is present in the perirectal/perianal soft tissues as has been previously the case in this patient with documented multiple bilateral perirectal abscess and fistula formation. Currently a definite drainable fluid collection is not seen. Please note that MR scanning without and with contrast provides a more accurate assessment for possible early phase of recurrent disease, and prior MR scanning of the pelvis has been performed for this patient as recently as 09/27/16. Brief History 26 year old male with a history of Crohn's disease s/p bowel section, desiree- rectal fistula/abscess with seton drains, bipolar with psychosis, and ADHD who presents to the ED with increased pain and drainage associated with his fistula since November 27. He reports he had flulike symptoms starting on November 27 and felt that his coughing worsened his desiree-rectal fistula. He reports his flulike symptoms did improve but the perirectal area continue to have increased drainage, and he continued to have intermittent fevers and chills. His pain gradually increased and was intolerable today so he came in for evaluation. He currently denies any nausea, vomiting, abdominal pain, urinary symptoms. He reports he did have a manic episode last week which lasted for the whole week, but that has since resolved. Currently denies any SI/HI or hallucinations. In the ED, he was tachycardic in the 120s with mildly elevated blood pressure and a temperature of 38.1c. He was given 2 L of normal saline, blood cultures were drawn, and Zosyn was started. His lactic acid was 2.7 on presentation. He had a white count of 16.6 with 79.6% neutrophils. UA was unremarkable. CT of abdomen and pelvis was unremarkable Dr. Daniels from general surgery was consulted and will evaluate the patient in the AM. Hospital Course 26 year old male with a history of Crohn's disease s/p bowel section, desiree- rectal fistula/abscess with seton drains, bipolar with psychosis, and ADHD who presents to the ED with fever and pain and drainage associated with his desiree- rectal fistula since November 27 admitted for sepsis LEFt Desiree-rectal Fistula, surgical treated - s/p I and D Dr. Fabián Awan 12/10/2016 -IV Zosyn started 12/10 - switched to metronidazole by surgery team December 12, may consider additional gram-negative coverage given immunocompromise state if clinically decompensates - stable at this time -Blood Cultures and abscess cultures pending - no growth to date -IV Dilaudid 0.5mg Q4h prn pain. -Patient has been doing well with by mouth oxycodone for pain control. -Per general surgery patient can be discharged today December 13. General surgery recommended Flagyl orally and infectious disease recommended adding cefuroxime to that regimen orally -General surgery recommended follow-up with them in 1 week. Sepsis, resolving -As demonstrated by Fever, Tachycardia, elevated wbc, and desiree-rectal abscess as source of infection. - 2 L NS ED w/ vital improved. -Lactic Acid of 2.7 on presentation currently lactic acid has normalized Urinary retention, acute - resolved -Most likely secondary to epidural and Mckee has been discontinued, patient voiding spontaneously Crohn's Disease, POA -Patient reports his Crohn's disease has been stable since starting Remicaide. --Has not had any flare ups and BMS have been regular. Bipolar d/o with psychosis, POA -Stable, will continue patient's home medications / depakote ADHD, POA -Stable, will continue patient's home medications / /adderall anxiety --home prn xanax Tylenol prn fever/pain Anti-emetics prn Bowel regimen prn Exam Vital Signs (Last) Date Time Temp Pulse Resp B/P Pulse Ox O2 Delivery O2 Flow Rate FiO2 12/13/16 05:20 36.8 68 16 106/61 99 Room Air Test 12/09/16 17:56 12/09/16 18:05 12/09/16 20:32 12/10/16 00:50 Magnesium Level 1.8mg/dL (1.6-2.6) Total Bilirubin 0.3mg/dL (0.0-1.2) Aspartate Amino Transf (AST/SGOT) 17U/L (0-50) Alanine Aminotransferase (ALT/SGPT) 16U/L (0-44) Alkaline Phosphatase 94U/L (25-150) Total Protein 7.9g/dL (6.4-8.4) Albumin 4.3g/dL (3.4-5.0) Lipase 14U/L (13-60) Procalcitonin < 0.05ng/mL (See Comment) Hold Gutierrez Top Tube Received (Received) Urine Color Yellow (YELLOW) Urine Appearance Clear (CLEAR,HAZY) Urine pH 7.0 (5.0-8.0) Urine Specific Mammoth 1.005 (1.003-1.035) Urine Protein Negativemg/dL (NEG,TRACE) Urine Glucose (UA) Negativemg/dL (NEGATIVE) Urine Ketones Negativemg/dL (NEGATIVE) Urine Occult Blood Trace (NEGATIVE) Urine Nitrite Negative (NEGATIVE) Urine Bilirubin Negative (NEGATIVE) Urine Urobilinogen Normalmg/dL (NORMAL) Urine Leukocyte Esterase Negative (NEGATIVE) Urine RBC 0-2/hpf (0-2) Urine WBC 0-5/hpf (0-5) Urine Epithelial Cells Occasional/hpf (NONE-MOD) Urine Crystals None seen (NONE SEEN) Urine Bacteria None/hpf (NONE-FEW) Urine Hyaline Casts None/lpf (NONE) Urine Granular Casts None seen (NONE SEEN) Urine Waxy Casts None seen (NONE SEEN) Urine Red Blood Cell Casts None seen (NONE SEEN) Urine White Blood Cell Casts None seen (NONE SEEN) Urine Mucus None seen (None Seen) Urine Trichomonas None seen (NONE SEEN) Urine Yeast None (NONE SEEN) Urine Culture Reflexed Not indicated Hold Urine Received (Received) Lactic Acid Level 0.7mmol/L (0.4-2.0) Test 12/13/16 05:42 12/13/16 05:45 Sodium Level 140mEq/L (134-144) Potassium Level 4.5mEq/L (3.5-5.2) Chloride Level 100mEq/L (97-108) Carbon Dioxide Level 30mmol/L (18-29) Blood Urea Nitrogen 4mg/dL (6-20) Creatinine 0.73mg/dL (0.76-1.27) Estimat Glomerular Filtration Rate 136mL/min (>59) Glucose Level 79mg/dL (60-99) Calcium Level 9.2mg/dL (8.5-10.1) White Blood Count 11.8th/mm3 (3.8-10.1) Red Blood Count 4.11mil/mm3 (4.40-5.80) Hemoglobin 12.3g/dL (13.8-17.2) Hematocrit 38.4% (41.0-50.0) Mean Corpuscular Volume 93.4fL (81-100) Mean Corpuscular Hemoglobin 29.9pg (27.0-35.0) Mean Corpuscular Hemoglobin Concent 32.0% (32.0-37.0) Red Cell Distribution Width 14.8% (12.3-15.4) Platelet Count 364bil/L (150-400) Neutrophils (%) (Auto) 53.7% (40-74) Lymphocytes (%) (Auto) 32.7% (14-46) Monocytes (%) (Auto) 12.5% (4-12) Eosinophils (%) (Auto) 0.6% (0-5) Basophils (%) (Auto) 0.3% (0-3) Discharge Medications Discharge Medications Amitriptyline (Amitriptyline) 25 Mg Tab 25 MG PO HS (Reported) Amphet Asp/Amphet/D-Amphet (Adderall) 30 Mg Tablet 30 MG PO BID (Reported) Cefuroxime Axetil (Cefuroxime) 500 Mg Tablet 500 MG PO BID Prescribed by: MENA WHEAT MD Ciprofloxacin (Cipro) 500 Mg Tablet 500 MG PO BID Prescribed by: RAVEN SLAUGHTER MD Dextroamphetamine/Amphetamine (Amphetamine Mixed Salts) 30 Mg Tablet 30 MG PO BID (Reported) Divalproex ER (Divalproex ER) 500 Mg Tab.er.24h 1,000 MG PO DAILY (Reported) Guanfacine ER (Guanfacine ER) 1 Mg Tab.er.24h 1 MG PO DAILY (Reported) Lurasidone (Latuda) 120 Mg Tablet 120 MG PO DAILY (Reported) Metronidazole (Flagyl) 250 Mg Tablet 500 MG PO Q8H Prescribed by: RAVEN SLAUGHTER MD As needed Alprazolam (Alprazolam) 0.5 Mg Tablet 0.5 MG PO DAILY PRN PRN For Anxiety or Agitation (Reported) oxyCODONE (oxyCODONE) 5 Mg Tablet 5 MG PO Q4H PRN PRN For Pain Prescribed by: JACINTA PARNELL MD oxyCODONE (oxyCODONE) 5 Mg Capsule 5 MG PO Q4H PRN PRN For Pain Prescribed by: MENA WHEAT MD Additional med instructions Take her medications as prescribed. Followup Plan Discharge Diet: Other (as recommended per general surgery and would recommend low residue diet) Discharge Activity: Limited until seen by PCP Provider: Sunny Tejada MD Follow-up in: 1 week (sooner if problems) Time spent 60 minutes Mena Wheat MD Dec 13, 2016 11:06
--- NOTE | 2016-12-13 12:06 | NUR ---
Social Work Continued Discharge Planning: Order for discharge acknowledged. Plan is home with parents who to provide transport home and whom to provide support and care. Patient states being able to manage wound care needs independently at home. Patient has follow up appointment with MD Garcia on the . No other anticipated discharge needs identified by patient at home. SW to follow. PLAN: Home with parents, via POV, pending clinical course. No anticipated discharge needs. Ra HOWARD
[2016-12-13] MEDS: ALPRAZolam 0.5 mg Tablet PO PRN (12:37)
--- NOTE | 2016-12-13 13:25 | NUR ---
Discharge Pt discharged to home with family via private vehicle at 1315 hrs. VSS, PIV removed intact. Pain controlled with 2 Percocet. All personal possessions sent with pt. Discharge and follow up instructions given to pt, and he expressed understanding.
--- NOTE | 2016-12-13 14:00 | PROG NOTE ---
[address] [address] PROGRESS NOTE PATIENT: IZABEL BERNABE : 1990 MR#: [id number] ADMIT: 12/09/2016 JOB ID: [id number] DATE: 12/13/2016 INFECTIOUS DISEASE FOLLOW UP NOTE: REASON FOR FOLLOW UP: Perirectal abscess in an immunosuppressed host. The patient is feeling well today and states he is ready for discharge. He was previously evaluated this morning by Dr. Sunny Tejada of Surgery. The patient has no fevers, chills or sweats and only minimal pain. I discussed this case last night with Dr. Tejada. Dr. Tejada felt that even though the patient is somewhat immunosuppressed by virtue of his TNF inhibitors that he would probably be okay without systemic antibiotics. Dr. Tejada also indicated that the Flagyl is being given strictly for Crohn disease rather than for antimicrobial activity against possible agents involved in his perirectal abscess. PHYSICAL EXAMINATION: Reveals an afebrile gentleman, in no acute distress. Temperature 36.8, pulse 68, respiratory rate 16, blood pressure 106/61. He is saturating well on room air. Examination of the oral cavity unremarkable. Lungs clear. Abdomen benign. No changes in the examination. LABORATORIES: Today include a white count of 11,800, with 13% monocytes but there is not a neutrophilia. Creatinine 0.73. Urinalysis basically negative. The patient's blood cultures are negative. IMPRESSION: After discussing this case with Dr. Tejada, I am in agreement that no systemic antibiotics are needed. The patient is a bit immunosuppressed and we sometimes give people antibiotics for perianal or perirectal abscesses after drainage if they are immunosuppressed, but I think the patient has done very well and certainly appears entirely nontoxic, and it is reasonable to send him home without antibiotics. RECOMMENDATIONS: 1. I think discharge without antibiotics is warranted here. 2. This patient will be followed up by Dr. Tejada who will contact me should he see reason to reinstitute antibiotics, and we can discuss options at that point. ID will be signing off now.
[2017-01-13] MEDS ORDERED: [UNRECOGNIZED DRUG - OTHER] PO (09:51)
[2017-03-10] MEDS ORDERED: BUSP15TA3 PO (09:27)
[2017-03-10] MEDS ORDERED: CIPR-198 PO (09:27)
[2017-03-10] MEDS ORDERED: METR250T PO (09:27)
[2017-03-14] MEDS ORDERED: BUSP15TA3 PO (10:11)
[2017-03-14] MEDS ORDERED: remicade (10:11)
[2017-03-14] MEDS ORDERED: LISD40CA PO (10:11)
[2017-03-14] MEDS ORDERED: DEP500A PO (10:11)
[2017-03-14] MEDS ORDERED: LURA120T PO (10:11)
[2017-03-14] MEDS ORDERED: METR500T19 PO (10:11)
[2017-03-14] MEDS ORDERED: CIPR-231 PO (10:11)
== END 2016-12-13 13:15 | disposition home or self-care (01) | DRG 720 ==
LOC: SED 17:23 → OBSVTOIN 22:46 → OSC 22:46
PROVIDERS: ADMIT Family Medicine; ATTEND Family Medicine
PROC: 0D9QXZX Drainage of Anus, External Approach, Diagnostic (ICD-10-PCS; principal; 2016-12-10 16:00)
DX: A41.9 Sepsis, unspecified organism (principal); K50.013 Crohn's disease of small intestine with fistula; K50.014 Crohn's disease of small intestine with abscess; F31.9 Bipolar disorder, unspecified; F90.0 Attention-deficit hyperactivity disorder, predominantly inattentive type; F41.9 Anxiety disorder, unspecified

== ENCOUNTER 2017-03-16 11:32 | Day surgery (SDC) | payer OTHER ==
[2017-03-16] VITALS (8 sets, daily range): BP systolic 107–127; BP diastolic 66–82; PULSE 57–84; RESP 6–18; O2SAT 97–100
[~2017-03-16] VITALS: Ht 172.7 cm; Wt 82.2 kg
[~2017-03-16 11:32] MED LIST changes: +BUSP15TA3 PO; +CEFU500T61 PO; +CIPR-198 PO; +DEP500A PO; -Dexamethasone 4 mg/mL Inj ONE; -GUAN1TAB26 PO; +LISD40CA PO; +METR500T19 PO; +OXYC5CAP4 PO; -Ondansetron 2 mg/mL 2 mL Inj ONE; -Propofol 10,000 mCg/mL 20 mL Inj ONE; +[UNRECOGNIZED DRUG - OTHER] PO; +remicade
[2017-03-16] MEDS ORDERED: Ondansetron 2 mg/mL 2 mL Inj ONE (11:33)
[2017-03-16] MEDS ORDERED: fentaNYL-PF 50 mCg/mL 2 mL Inj ONE (11:33)
[2017-03-16] MEDS ORDERED: Propofol 10,000 mCg/mL 20 mL Inj ONE (11:33)
[2017-03-16] MEDS: Lactated Ringer's 1,000 ML IV SCH ×2 (11:41→12:30)
[2017-03-16] MEDS ORDERED: LISD60CA PO (12:02)
[2017-03-16] MEDS ORDERED: INFL100V IV (12:03)
[2017-03-16] MEDS ORDERED: Bupivacaine Liposome 1.3% 20 mL Inj ONE (12:17)
--- NOTE | 2017-03-16 12:30 | PCM.HPANE ---
Patient Data Surgeon Admitting Provider: Attending Provider:Sunny Tejada MD Primary Care Physician:Tian Emmanuel MD Other Provider:Remedios Coradoingham Anesthesia Reason for Visit Anal Fistula, Srinivas's Disease Ht/WT & BMI Height (Feet): 5 Height (Inches): 8 Weight (Kilograms): 80.28 Body Mass Index 26.00, 26.00 Allergies Coded Allergies: adalimumab (Verified Allergy, Unknown, 03/16/17) Past Anesthesia History Anesthesia History: Denies:: Abnormal Airway, Anesthesia Reactions, Difficult Intubation, Fam Anesthesia Reaction, Fam Malignant Hypertherm, Malignant Hyperthermia Diabetes History Hx Diabetes?: No MRSA MRSA: No Medications Reported Medications Infliximab (Remicade)10 Mg/Ml [id number] Mg IV 03/16/17 Lisdexamfetamine Dimesylate (Vyvanse)60 Mg Lsmpbgn82 Mg PO DAILY 30 Days Ref 0 03/16/[address] (Depakote DR)500 Mg Tablet1,500 Mg PO DAILY Ref 0 Swallowed whole without chewing to avoid local irritation of the mouth and throat. 03/14/17 Buspirone 15 Mg Acfcyw39 Mg PO BID Ref 0 03/14/17 Ciprofloxacin 500 Mg Lwjomy760 Mg PO BID 03/10/17 Metronidazole (Flagyl)250 Mg Phgefb456 Mg PO TID 03/10/17 Lurasidone (Latuda)120 Mg Gszngx849 Mg PO DAILY 08/31/16 Discontinued Reported Medications Lisdexamfetamine Dimesylate (Vyvanse)40 Mg Spcczcv19 Mg PO DAILY 30 Days Ref 0 03/14/17 [remicade] 5mg/kg No Conflict CheckUnknown Dose e2cvtcu 03/14/17 Metronidazole 500 Mg Fxizbj395 Mg PO TID Ref 0 03/14/17 Lurasidone (Latuda)120 Mg Yjbklf064 Mg PO DAILY 03/14/17 Ciprofloxacin (Cipro)500 Mg Vbffix684 Mg PO BID Ref 0 03/14/17 Buspirone 15 Mg Ecqcyd21 Mg PO BID Ref 0 03/10/17 [vivancin] No Conflict Check60 Mg PO DAILY 01/13/17 Amphet Asp/Amphet/D-Amphet (Adderall)30 Mg Xqkgiy47 Mg PO BID Ref 0 10/08/16 Divalproex ER 500 Mg Tab.er.24h1,000 Mg PO DAILY 09/23/16 Amitriptyline 25 Mg Tab25 Mg PO HS 09/23/16 Dextroamphetamine/Amphetamine (Amphetamine Mixed Salts)30 Mg Qlguag67 Mg PO BID 09/23/16 Alprazolam 0.5 Mg Tablet0.5 Mg PO DAILY PRN For Anxiety or Agitation Ref 0 12/10/16 Discontinued Scripts oxyCODONE 5 Mg Capsule5 Mg PO Q4H PRN For Pain #30 CAPSULE Ref 0 Prov:Mena Wheat MD 12/13/16 Cefuroxime Axetil (Cefuroxime)500 Mg Udyexj384 Mg PO BID #20 TABLET Ref 0 Prov:Mena Wheat MD 12/13/16 oxyCODONE 5 Mg Tablet5 Mg PO Q4H PRN For Pain #30 TABLET Prov:Carroll Le MD 09/24/16 Metronidazole (Flagyl)250 Mg Ntnzwr021 Mg PO Q8H #21 TABLET Prov:Katie Campos MD 10/02/16 History History of ENT Problems?: Yes HEENT History: Positive for:: Sinus Problem (sinus infection hx) Denies:: Abnormal Airway Difficult Intubation Dysphagia Hearing Problem Denture Type: None Teeth Condition: Tooth Decay Inflamed Gums Hx of Heart Problems?: No Cardiovascular History: Positive for:: Irregular Heartbeat (PT REPORTS OCCAS PALPITATIONS) Denies:: AICD Atrial Fibrillation Chest Pain Congestive Heart Failure Hypertension Valvular Heart Disease Hx of Respiratory Problem?: No Respiratory History: Denies:: Asthma COPD Cough Hemoptysis Pneumonia Tuberculosis Use of C-PAP Machine Hx Neurologic Problems?: No Neurological History: Denies:: CVA Dementia Seizures Hx of GI Problems?: Yes Gastrointestinal History: Positive for:: Gastrointestinal Bleeding Rectal Bleeding Denies:: Cirrhosis Diverticulitis Gastroesphageal Reflux Hiatal Hernia Other GI Pertinent History: crohns disease- large and small intestine- hx of small bowel resection, multiple abscess/ drains. Bleeding anal fistula current admission problem Q8week cycle of remicade infusions- last treated 03/10/17 Hx of Problems?: No Genitourinary History: Denies:: HX of Hemodialysis Kidney Stones Urinary Tract Infection Male Hx: Denies:: Prostate Problems Scrotal Mass Testicular Surgery Skin History: Denies:: History Skin Disorders? (RASH) Pressure Ulcers Hx Musculoskeletal Problems?: No Musculoskeletal History: Positive for:: Back Injury Denies:: Joint Replacement Hx of Psycho/Social Problems?: Yes Psycho Social History: Positive for:: Anxiety Bipolar Disorder Hx Depression Denies:: Suicide Attempt Hx Surgeries?: Yes (small bowel resection, abscess drain placements) Hx Any Other Health Problems?: Yes Other History: Positive for:: Hospitalization (fistulas, all related to crohns ) Denies:: Cancer Endocrine Disease Thyroid Disease History Blood Transfusions: Denies:: Blood Transfuse Reaction Blood Transfusions Hx Diabetes: No Hx Alcohol Use: YesHx Substance Use: No Smoking Status: Never Smoker Have You Smoked inLast 12 mo: Yes Stop/Bang S-Snoring: Do You Snore Loudly: Yes T-Tired: feel tired, fatigued: No O-Obsered: Observed not breath: No P-Blood Pressure: treated: No B- Body Mass Index > 35 kg/m2: No A- Age over 50: No N- Neck Large Circumference: No G- Gender Male: Yes LINDSAY Total Score: 2 Risk Assessment Category Category 1A: Patient has history of documented sleep apnea, and HAS NOT received any narcotic, sedative or anesthesia administration during this stay. Category 1B: Patient has history of documented sleep apnea, and HAS received any narcotic , sedative or anesthesia administration during this stay Category 2: Patient has SUSPECTED Obstructive Sleep Apnea, and HAS received any narcotic , sedative or anesthesia administration during this stay. Category 3: Patient has SUSPECTED Obstructive Sleep Apnea and HAS NOT received narcotic, sedative or anesthesia administration during this stay. Category 4: Outpatient in Procedural Areas with known sleep apnea or who screen positive for High Risk via the STOP/BANG questionnaire. Exam Exam General Appearance: Alert, Oriented X3, Cooperative, No Acute Distress HEENT/AIRWAY: MP 1, Other (poor dentition) Lungs: Normal Air Movement Heart: Regular Rate/Rhythm Plan Impression Patient chart reviewed, patient interviewed and anesthestic plan with risks, benefits, and alternatives discussed, and informed consent obtained. ASA Physical Status: ASA2 Mod Systemic Disease Anesthetic Plan: GA Bene/Risks/Altern/Consents: Yes HP Complete Prior to Induction: Yes Jc Ash MD Mar 16, 2017 07:55 Pari Galicia DO Mar 16, 2017 12:30
[2017-03-16] MEDS ORDERED: Bupivacaine-MPF 0.25%/EPI 30 mL Inj INJ ONE (12:38)
[2017-03-16] MEDS ORDERED: Lactated Ringer's 500 ML IV PRN (12:50)
[2017-03-16] MEDS ORDERED: Ondansetron 2 mg/mL 2 mL Inj IVPUSH PRN (12:50)
[2017-03-16] MEDS ORDERED: Lactated Ringer's 1,000 ML IV SCH (12:50)
[2017-03-16] MEDS ORDERED: Bupivacaine Liposome 1.3% 20 mL Inj INFILTRATE ONE (12:56)
[2017-03-16] MEDS ORDERED: HYDROGEN PEROXIDE 3% TOPICAL ONE (13:01)
[2017-03-16] MEDS ORDERED: oxyCODONE-Acetamin 5-325 mg Tablet PO PRN (13:25)
[2017-03-16] MEDS: fentaNYL-PF 50 mCg/mL 2 mL Inj IVPUSH PRN ×2 (13:34→13:39)
--- NOTE | 2017-03-16 22:39 | OP ---
[address] [address] OPERATIVE REPORT PATIENT: IZABEL BERNABE : 1990 MR#: [id number] ADMIT: 03/16/2017 JOB ID: [id number] DATE OF SURGERY: 03/16/2017 SURGEON: Sunny Tejada MD ANESTHESIA: General. PREOPERATIVE DIAGNOSIS(ES): Crohn's-related anal fistula. POSTOPERATIVE DIAGNOSIS(ES): Crohn's-related anal fistula. PROCEDURES: Exam under anesthesia with fistulotomy. DESIGN MAKER: Vadim Lozada PA-C (the conference assistant was required for the safe and timely completion of the case). COMPLICATIONS: None. ESTIMATED BLOOD LOSS: 5 mL. CONDITION: Satisfactory. SPECIMEN: None. FINDINGS: The fistula have been giving the patient trouble. Had an external opening several centimeters away from the verge in the left posterolateral position. This tracks quite superficially involving minimal sphincter to the posterior midline just inside the verge. I therefore will perform a fistulotomy. INDICATION/SIGNIFICANT HISTORY: The patient is a 26-year-old man with a history of Crohn's disease who for several months now has been struggling with anal fistula disease. He was initially temporized with drains, setons and then started on Remicade. The setons were removed and he developed no subsequent abscesses. However, recently he developed bleeding from the external opening of one of the fistula sites. It was for this reason we elected to proceed with surgery. OPERATIVE TECHNIQUE: The patient was taken to the operating room and placed in supine position. General anesthesia was administered. The perineum was prepped and draped in standard surgical fashion and a procedure pause was performed. I identified the problematic external fistula opening. I gently inserted a lacrimal duct probe. This coursed rather superficially towards the midline, but I had trouble finding the internal opening. It also did track superiorly in the deeper plane, but, again I could not find an opening. I injected some hydrogen peroxide and I was able to identify an internal opening in the posterior midline several centimeters above the anal verge. I then was able to get my lacrimal probe through that opening. I palpated and there seemed to be little, if any, external sphincter involved and elected to proceed with a fistulotomy. I opened up the overlying skin and mucosa. I then used electrocautery to achieve hemostasis. I aggressively abraded the tissue to get rid of the granulation tissue that had been bleeding. Liposomal and bupivacaine was then injected. The wound was then packed and the case concluded.
== END 2017-03-16 23:59 | disposition home or self-care (01) ==
LOC: SAS 11:32
PROVIDERS: ATTEND General Practice
DX: K50.119 Crohn's disease of large intestine with unspecified complications (principal); K60.3 Anal fistula; F32.9 Major depressive disorder, single episode, unspecified; F90.9 Attention-deficit hyperactivity disorder, unspecified type
CPT/HCPCS: 46270; A4244; J3010; J7120

== ENCOUNTER 2017-06-18 17:20 | Emergency (ER) | payer OTHER ==
[~2017-06-18] VITALS: Ht 172.7 cm; Wt 72.7 kg
[~2017-06-18 17:20] MED LIST changes: -AMPH30TA3 PO; -AMT25T PO; -CEFU500T61 PO; -CIPR-231 PO; -DEXT30TA12 PO; -DIVA500T14 PO; +INFL100V IV; -LISD40CA PO; +LISD60CA PO; -METR500T19 PO; -OXYC5CAP4 PO; -OXYC5TAB72 PO; -[UNRECOGNIZED DRUG - OTHER] PO; -remicade
[2017-06-18 17:22] VITALS: BP 131/80; PULSE 118; RESP 20; O2SAT 100
--- NOTE | 2017-06-18 18:41 | ED.REPORT ---
HPI-Abd Pain M Under 40 Date of Service Jun 18, 2017 ED Provider: Nahum Casanova DO The patient is a 26 year old male with a history of Crohn's disease who presents to the ED with a painful perirectal abscess onset 4 days ago. He is on Remicade for Crohn disease. Pt is having 1-2 bowel movements a day which have been solid but turned to diarrhea a couple days ago. Pt denies nausea, vomiting , diarrhea, chills, fever, chest pain, SOB, back pain, extremity pain, or any other symptoms. Nursing Notes Stated Complaint: PERIRECTAL ABSCESS Chief Complaint: Male Abdominal Pain Nursing Notes Reviewed: Yes Allergies: Coded Allergies: adalimumab (Verified Allergy, Unknown, 03/16/17) Scheduled Buspirone (Buspirone) 15 Mg Tablet 15 MG PO BID Ciprofloxacin (Ciprofloxacin) 500 Mg Tablet 500 MG PO BID Divalproex DR (Depakote DR) 500 Mg Tablet 1,500 MG PO DAILY Swallowed whole without chewing to avoid local irritation of the mouth and throat. Lisdexamfetamine Dimesylate (Vyvanse) 60 Mg Capsule 60 MG PO DAILY Lurasidone (Latuda) 120 Mg Tablet 120 MG PO DAILY Metronidazole (Flagyl) 250 Mg Tablet 250 MG PO TID Miscellaneous Medications Infliximab (Remicade) 10 Mg/Ml Sdv 100 MG IV General Time Seen by MD: 18:40 Chief Complaint Other (perirectal abscess) Hx Obtained From: Patient Arrived By: Walk-in Sudden in Onset?: Yes Onset Occurred: 4 days ago Symptom Duration: Since onset Progression since Onset: Gradually worsening Associated with: Reports: Diarrhea Pertinent Negative: Pt denies other symptoms Recent Healthcare: No recent doctor visit, No recent hospitalization Similar Sx Previous: No Past Medical History Past Medical History Notes: GI: Dr. Dewey Perirectal Abscess -> OR 09/2014 Past Medical History Crohn's disease with bowel resection History of perirectal abscess and fissures Anxiety ADHD Past Surgical History Ileocolonic resection in 2005 for Crohn's Perianal abscess drainage Colonoscopy in 2013 seton drain placed October 2016 Family History Autoimmune diseases in mother's side of the family Reports: Cancer Smoking History Never Smoker Social History Alcohol Use: "Social" Drug Use: THC Other Social History: Good social support, Local resident Occupation Student Ambulatory Status Independent Review of Systems Constitutional: Denies: Chills, Fever Respiratory: Denies: Shortness of breath Cardiovascular: Denies: Chest pain GI: Denies: Diarrhea, Nausea, Vomiting Musculoskeletal: Denies: Back pain, Extremity pain Complete sys rev & neg: except as marked. Skin: Reports Swelling (abscess) Physical Exam Initial Vital Signs Vital Signs (First) Date Time Temp Pulse Resp B/P Pulse Ox O2 Delivery O2 Flow Rate FiO2 06/18/17 17:22 37.0 118 20 131/80 100 Room Air Initial VS: Reviewed General/Constitutional: Awake, Alert, Cooperative, Not toxic appearing Respiratory / Chest: Atraumatic, Breath sounds NL, Breath sounds = bilat Cardiovascular: Heart rate NL, Regular rhythm, Heart sounds NL Abdomen: Atraumatic, Soft, Non-tender Back: Atraumatic, Inspection NL, Full range of motion Head / Eyes: Atraumatic, Normocephalic ENT: Atraumatic, Mucous membranes moist Neurologic: Oriented X3, Speech NL, No motor deficits Upper Extremity / MS: Atraumatic, Full range of motion, No deformity Lower Extremity / Pelvis / MS: Atraumatic, Full range of motion, No deformity Abscess Notes: tender perirectal abscess on right gluteus 2 inches from anus Abscess #1 Location/Condition: Positive: Perirectal... (Tender) Interpretation & Diagnostics Lab Results Interpretation Result Diagram: 06/18/17190906/18/171909 Test 06/18/17 19:10 White Blood Count 13.4th/mm3 (3.8-10.1) Red Blood Count 4.73mil/mm3 (4.40-5.80) Hemoglobin 14.4g/dL (13.8-17.2) Hematocrit 41.9% (41.0-50.0) Mean Corpuscular Volume 88.6fL (81-100) Mean Corpuscular Hemoglobin 30.4pg (27.0-35.0) Mean Corpuscular Hemoglobin Concent 34.4% (32.0-37.0) Red Cell Distribution Width 14.7% (12.3-15.4) Platelet Count 272bil/L (150-400) Neutrophils (%) (Auto) 68.6% (40-74) Lymphocytes (%) (Auto) 19.8% (14-46) Monocytes (%) (Auto) 11.1% (4-12) Eosinophils (%) (Auto) 0.1% (0-5) Basophils (%) (Auto) 0.1% (0-3) Sodium Level 138mEq/L (134-144) Potassium Level 3.4mEq/L (3.5-5.2) Chloride Level 100mEq/L (97-108) Carbon Dioxide Level 22mmol/L (18-29) Blood Urea Nitrogen 3mg/dL (6-20) Creatinine 0.64mg/dL (0.76-1.27) Estimat Glomerular Filtration Rate 158mL/min (>59) Glucose Level 77mg/dL (60-99) Calcium Level 9.2mg/dL (8.5-10.1) Total Bilirubin 0.4mg/dL (0.0-1.2) Aspartate Amino Transf (AST/SGOT) 29U/L (0-50) Alanine Aminotransferase (ALT/SGPT) 44U/L (0-44) Alkaline Phosphatase 88U/L (25-150) Total Protein 8.0g/dL (6.4-8.4) Albumin 4.1g/dL (3.4-5.0) Hold Gutierrez Top Tube Received (Received) Procedures ABSCESS INCISION AND DRAINAGE NOTES: performed at 1999 Consent from patient, Hand hygiene observed , Stand sterile technique location of abscess: tender perirectal abscess on right gluteus 2 inches from anus Local Anesthesia: Lidocaine w/ epi 1% Betadine used Copiously irrigated Incised Abscess with Scalpel #10 Packing placed, dressing applied, no complications, condition improved, tolerated procedure well, patient stable Re-Eval/Medical Decision Med Decision/Clinical Course The abscess was drained and irrigated. Did not seem to be very deep. It is hard to say if this is a fistula or not. Surgical consultation over the phone with Dr. Le. We will place Shaheen on Flagyl and pain medication. He is to call his surgeon tomorrow for definitive follow-up in the office. Consultation : Referral / Consult Name: Carroll Le MD Consulted With: Surgeon Call Returned at: 18:50 Secondary Social Studies Teacher: Agrees with eval, Agrees with plan Note: Case discussed. Dr. Le will see pt in the clinic, plan for incision, drainage and antibiotics. Counseled Regarding: Diagnosis, Lab results, Need for follow-up, When/why to return to ED Patient Discharge & Departure Primary Impression: Perirectal abscess Disposition: Home Discharge Condition All VS Reviewed: Yes Condition: Stable Patient Instructions: Abscess (ED), Rectal Abscess (ED) Additional Instructions: The abscess drained a small amount of pus. It did not appear to be fistulous with your anal rectal region. I do want you to be seen by your surgeon. Call his office tomorrow morning for follow-up. Tell him about the abscess and incision and drainage. Take Flagyl 3 times daily for 5 days. Take 1-2 Percocet every 6 hours for severe pain. . The abscess needs to continue to drain. Do not hesitate to return if any problems or any new or worrisome symptoms. Do not drive or drink alcohol or consume acetaminophen while taking the Percocet. No alcohol consumption while taking the Flagyl either. Referrals: Tian Emmanuel MD (PCP) Sunny Tejada MD Attestation Portion of this note were transcribed by Hillary Knox. I, Dr. Casanova, personally performed the history, physical exam, and medical decision-making: I reviewed and confirmed the accuracy for the information in the transcribed note. Signed by: tulio Veláqsuez, 06/18/17 2200 copies to: Tian Emmanuel MD, Todd P DO Jun 18, 2017 18:41 Hillary Knox Jun 18, 2017 18:51
[2017-06-18] MEDS ORDERED: Ondansetron 2 mg/mL 2 mL Inj IVPUSH PRN (18:50)
[2017-06-18] MEDS ORDERED: Lidocaine 1%/Epi 1:100,000 30 mL MDV INFILTRATE ONE (18:55)
[2017-06-18] MEDS: HYDROmorphone 0.5 mg/0.5 mL iSecure Syringe IVPUSH PRN ×2 (19:06→20:00)
[2017-06-18 19:16] LABS: BASOPHILS % (AUTO) 0.1 % (0-3); EOSINOPHILS % (AUTO) 0.1 % (0-5); MONOCYTES % (AUTO) 11.1 % (4-12); Mean Corpuscular Hemoglobin 30.4 pg (27.0-35.0); Mean Corpuscular Volume 88.6 fL (81-100); NEUTROPHILS % (AUTO) 68.6 % (40-74); Platelet Count 272 bil/L (150-400)
[2017-06-18] MEDS ORDERED: _oxyCODONE/APAP 5-325 mg Tablet PO PRN (20:05)
[2017-06-18 20:41] VITALS: BP 118/63; PULSE 104; RESP 16; O2SAT 100
== END 2017-06-18 20:41 | disposition home or self-care (01) ==
LOC: SED 17:20
DX: K61.1 Rectal abscess (principal); K52.9 Noninfective gastroenteritis and colitis, unspecified; Z88.8 Allergy status to other drugs, medicaments and biological substances; Z79.899 Other long term (current) drug therapy
CPT/HCPCS: 36415; 46040; 80053; 85025; 96374; 96375; 99284; J1170; J2250; J2405

== ENCOUNTER 2017-07-10 10:43 | Emergency (ER) | payer OTHER ==
[~2017-07-10] VITALS: Ht 172.7 cm; Wt 72.7 kg
[2017-07-10 10:46] VITALS: BP 112/75; PULSE 131; RESP 18; O2SAT 99
[2017-07-10] MEDS ORDERED: ACET-171 PO (11:01)
--- NOTE | 2017-07-10 11:05 | ED.REPORT ---
HPI-Rash / Abscess Date of Service Jul 10, 2017 ED Provider: Doc,Ed MD History of Present Illness: john rectal abscess, seen 2 weeks ago and drained, larger this time. primary care is tian emmanuel. 06/05. many abscess in the rectal area in the past Nursing Notes Stated Complaint: ABSCESS Chief Complaint: Skin Rash/Abscess Nursing Notes Reviewed: Yes Allergies: Coded Allergies: adalimumab (Verified Allergy, Unknown, 07/10/17) Scheduled Buspirone (Buspirone) 15 Mg Tablet 15 MG PO BID Divalproex DR (Depakote DR) 500 Mg Tablet 1,500 MG PO DAILY Swallowed whole without chewing to avoid local irritation of the mouth and throat. Infliximab (Remicade) 10 Mg/Ml Sdv 100 MG IV every 6 weeks Lisdexamfetamine Dimesylate (Vyvanse) 60 Mg Capsule 60 MG PO DAILY Lurasidone (Latuda) 120 Mg Tablet 120 MG PO DAILY Scheduled PRN Acetaminophen (Acetaminophen) 500 Mg Tablet 1,000 MG PO Q6H PRN PRN For Pain General Time Seen by MD: 11:05 Chief Complaint Abscess Hx Obtained From: Patient Onset Occurred: More than a week ago... (3 weeks) Past Medical History Past Medical History Notes: GI: Dr. Dewey Perirectal Abscess -> OR 09/2014 Past Medical History Crohn's disease with bowel resection History of perirectal abscess and fissures Anxiety ADHD Past Surgical History Ileocolonic resection in 2005 for Crohn's Perianal abscess drainage Colonoscopy in 2013 seton drain placed October 2016 Family History Autoimmune diseases in mother's side of the family Reports: Cancer Smoking History Never Smoker Social History Alcohol Use: Denies alcohol use Drug Use: THC Other Social History: Good social support, Lives with parents, Local resident Occupation no work or school 07/10/2017 Ambulatory Status Independent Review of Systems Basic Review of Systems : No dysuria, No frequency Endocrine: No cold intolerance, No heat intolerance, No weight gain, No weight loss Psychiatric: Normal thought content Physical Exam Initial Vital Signs Vital Signs (First) Date Time Temp Pulse Resp B/P Pulse Ox O2 Delivery O2 Flow Rate FiO2 07/10/17 10:46 37.5 131 18 112/75 99 Room Air Initial VS: Reviewed, Vital signs normal Head / Eyes: Atraumatic, Normocephalic, PERRL ENT: Mucous membranes moist, Conjunctiva normal, No scleral icterus Neck: Supple, Non-tender, Full range of motion Respiratory: Breath sounds normal, Clear to auscultation, No respiratory distress Cardiovascular: Regular rate & rhythm, Heart sounds normal, Intact distal pulses Abdomen / GI: Soft, Non-tender, No guarding, No rebound, No distention Back: No CVA tenderness Lymphatic: No lymphadenopathy Extremities: Vascular intact, Neuro intact, No swelling, No tenderness Neurologic: Alert, Oriented, Nonfocal Psychiatric: Mood/affect normal, Behavior normal, Normal thought content General/Constitutional: Awake, Alert, No acute distress, Well appearing, Well developed, Well hydrated, Well nourished, Cooperative, Not toxic appearing ENT: Atraumatic, Airway patent, Mucous membranes moist, Pharynx NL Respiratory / Chest: Atraumatic, Breath sounds NL, Breath sounds = bilat, No respiratory distress Rectum / Perineum: Atraumatic, Blood - occult heme - external exam, patient indicates area no palpable floutance palpated. healed site visisble. Guiac negative. No palpable abnormalities Interpretation & Diagnostics Interpretation & Diagnostics: ROCEDURE: CT CERVICAL SPINE WITHOUT CONTRAST ([id number]) INDICATIONS: hit in head with sledge hammer pain TECHNIQUE: Noncontrast 3 mm thick sections acquired from the skull base to the T4 level. Sagittal and coronal reformats were then constructed. For radiation dose reduction, the following was used: automated exposure control, adjustment of mA and/or kV according to patient size. COMPARISON: None. FINDINGS: Image quality: Excellent. Bones: No fractures or dislocations. There is multilevel facet arthropathy in the upper cervical spine with fusion on the right at C2-C3. There is mild left uncovertebral joint arthropathy at C3-C4 and C4-C5. Visualized superior ribs are intact. Soft tissues: Prevertebral soft tissues are normal in thickness. No paravertebral hematomas. No apical pneumothoraces. IMPRESSION: 1. No fracture or subluxation. Dictated by: Abrahan Hogan M.D. on 07/10/2017 at 13:43 Approved by: Abrahan Hogan M.D. on 07/10/2017 at 13:45 Lab Results Interpretation Result Diagram: 07/10/17 1135 07/10/17 1135 Test 07/10/17 11:35 07/10/17 13:16 White Blood Count 14.1th/mm3 (3.8-10.1) Red Blood Count 4.74mil/mm3 (4.40-5.80) Hemoglobin 14.8g/dL (13.8-17.2) Hematocrit 43.8% (41.0-50.0) Mean Corpuscular Volume 92.4fL (81-100) Mean Corpuscular Hemoglobin 31.2pg (27.0-35.0) Mean Corpuscular Hemoglobin Concent 33.8% (32.0-37.0) Red Cell Distribution Width 16.2% (12.3-15.4) Platelet Count 254bil/L (150-400) Neutrophils (%) (Auto) 69.4% (40-74) Lymphocytes (%) (Auto) 18.6% (14-46) Monocytes (%) (Auto) 11.4% (4-12) Eosinophils (%) (Auto) 0.2% (0-5) Basophils (%) (Auto) 0.2% (0-3) Sodium Level 135mEq/L (134-144) Potassium Level 4.4mEq/L (3.5-5.2) Chloride Level 99mEq/L (97-108) Carbon Dioxide Level 23mmol/L (18-29) Blood Urea Nitrogen 7mg/dL (6-20) Creatinine 0.77mg/dL (0.76-1.27) Estimat Glomerular Filtration Rate 128mL/min (>59) Glucose Level 115mg/dL (60-99) Calcium Level 9.0mg/dL (8.5-10.1) Total Bilirubin 0.6mg/dL (0.0-1.2) Aspartate Amino Transf (AST/SGOT) 40U/L (0-50) Alanine Aminotransferase (ALT/SGPT) 47U/L (0-44) Alkaline Phosphatase 82U/L (25-150) Total Protein 8.1g/dL (6.4-8.4) Albumin 4.4g/dL (3.4-5.0) Hold Gutierrez Top Tube Received (Received) Urine Color Yellow (YELLOW) Urine Appearance Clear (CLEAR,HAZY) Urine pH 7.0 (5.0-8.0) Urine Specific [place] 1.005 (1.003-1.035) Urine Protein Negativemg/dL (NEG,TRACE) Urine Glucose (UA) Negativemg/dL (NEGATIVE) Urine Ketones Negativemg/dL (NEGATIVE) Urine Occult Blood Negative (NEGATIVE) Urine Nitrite Negative (NEGATIVE) Urine Bilirubin Negative (NEGATIVE) Urine Urobilinogen Normalmg/dL (NORMAL) Urine Leukocyte Esterase Negative (NEGATIVE) Urine RBC 0-2/hpf (0-2) Urine WBC 0-5/hpf (0-5) Urine Epithelial Cells Occasional/hpf (NONE-MOD) Urine Crystals None seen (NONE SEEN) Urine Bacteria None/hpf (NONE-FEW) Urine Hyaline Casts None/lpf (NONE) Urine Granular Casts None seen (NONE SEEN) Urine Waxy Casts None seen (NONE SEEN) Urine Red Blood Cell Casts None seen (NONE SEEN) Urine White Blood Cell Casts None seen (NONE SEEN) Urine Mucus None seen (None Seen) Urine Trichomonas None seen (NONE SEEN) Urine Yeast None (NONE SEEN) Urinalysis Comment None Urine Culture Reflexed Not indicated Re-Eval/Medical Decision Med Decision/Clinical Course Discussed with Dr. Le. He does not feel patient is a surgery candidate. Patient did not make followup as requested. CT shows chronic rectoanal fistula. Dr. Le encourages follow with GI and surgery clinic. Appintment made in the ER at parent's request. Appointment time given Discharge & Departure Impression: Primary Impression: Crohns disease Digestive disease complication type: with fistula Disposition: Home Patient Instructions: Crohn Disease (ED), Self-Care Measures with a Chronic Disease (GEN) Additional Instructions: Your white count is elevated as it was before. You have had a good response to the Ketorolac. You are being provided the pill version of this medication. You have been seen by Dr. Le. He feels you should be seen by GI this week.You have an appointment with Dr. Keller this 07/13/2017 at 1:15. Please keep the appointment. Referrals: Tian Emmanuel MD (PCP) Carroll Keller MD EDSupervising Provider for APC: Patrick Bazan DO copies to: Tian Emmanuel MD; Carroll Keller MD, Sue ARNP Jul 10, 2017 11:05
[2017-07-10 11:43] LABS: BASOPHILS % (AUTO) 0.2 % (0-3); EOSINOPHILS % (AUTO) 0.2 % (0-5); MONOCYTES % (AUTO) 11.4 % (4-12); Mean Corpuscular Hemoglobin 31.2 pg (27.0-35.0); Mean Corpuscular Volume 92.4 fL (81-100); NEUTROPHILS % (AUTO) 69.4 % (40-74); Platelet Count 254 bil/L (150-400)
[2017-07-10] MEDS ORDERED: Ondansetron 2 mg/mL 2 mL Inj IVPUSH ONE (12:00)
[2017-07-10] MEDS ORDERED: 0.9% Sodium Chloride 1,000 ML IV ONE (12:00)
[2017-07-10] MEDS ORDERED: HYDROmorphone 0.5 mg/0.5 mL iSecure Syringe IVPUSH ONE (12:00)
--- NOTE | 2017-07-10 13:08 | DRSVH ---
PROCEDURE: CT ABDOMEN AND PELVIS WITH CONTRAST ([id number]) INDICATIONS: Increasing pelvic pain. The patient has a history of previous perirectal abscess/fistul a TECHNIQUE: After the administration of oral and intravenous contrast, 5 mm thick sections acquired from the diap hragms to the symphysis. 5 mm thick coronal and sagittal reformats were performed. For radiation do se reduction, the following was used: automated exposure control, adjustment of mA and/or kV accordi ng to patient size. COMPARISON: [facility], CT, CT ABD PELVIS W CON, 12/09/2016, 21:16. [facility] al, CT, CT PELVIS W CON, 09/30/2016, 21:24. [facility], CT, CT ABD PELVIS W CON, 12/16/19 16, 16:36. [facility], CT, ABD/PELVIS W/CON ([facility] [place]), 10/09/2014, 17:49. [facility], CT, ABD/PELVIS W/CON ([facility]), 01/09/2014, 13:19. FINDINGS: Image quality: Diagnostic. ABDOMEN: Lung bases: Lung bases are clear. Heart size is normal. Solid organs: Liver and spleen are normal in size and enhancement. Gallbladder is not enlarged. Bi liary system is non-dilated. Pancreas enhances normally. No adrenal nodules. Kidneys are normal in size and enhancement, without hydronephrosis. Peritoneum and bowel: The stomach, duodenum, and remainder of the small bowel loops are nondilated. There is no bowel obstruction. Moderate residual stool is seen within the colon. There appear to be postoperative changes at the base of the cecum. There is mild prominence of the wall of the rectum with edema noted adjacent to the rectum. No free fluid, loculated fluid collection or free air is se en within the abdomen. Nodes and vessels: No retroperitoneal or mesenteric adenopathy. Aorta and inferior vena cava are no rmal in caliber. Miscellaneous and bones: No ventral hernias. No acute osseous abnormalities or suspicious osseous l esions of the imaged spine or lower ribs are evident. PELVIS: Genitourinary: Bladder wall thickness is normal. The prostate is not enlarged. Miscellaneous: There continues to be moderate edema identified within the perianal soft tissues that extends along the inferior aspect of the right gluteal crease. A small elongated tubular structure i s identified, demonstrating peripheral enhancement, suggestive of a small abscess that is not complet cindi included on this examination, but measures at least 4.4 x 0.9 x 1.4 cm and tracks to the level of the skin (image 8, series 6). No definite additional loculated fluid collections are seen within th e pelvis. No free air is identified. No pelvic lymphadenopathy is identified. Bones: No suspicious bony lesions. No vertebral body compression fractures. IMPRESSION: 1. Edema surrounding the anus and rectum is suggestive of acute inflammation. No intrapelvic/intra- abdominal loculated fluid collections are appreciated. 2. Interval enlargement of the right rectoanal fistula within the right inferior gluteal crease may represent developing abscess and appears to track to the level of the skin. Please correlate clinica lly. No definite extension to the bone is appreciated. 3. No bowel obstruction. Dictated by: Jorge Bustos M.D. on 07/10/2017 at 12:00 Approved by: Jorge Bustos M.D. on 07/10/2017 at 12:06
[2017-07-10 13:30] LABS: COLOR,URINE YELLOW (YELLOW)
[2017-07-10 13:31] LABS: APPEARANCE,URINE CLEAR (CLEAR,HAZY); OCCULT BLOOD,URINE NEGATIVE (NEGATIVE); UROBILINOGEN,URINE NORMAL (NORMAL)
[2017-07-10 13:54] VITALS: BP 106/67; PULSE 105; RESP 21; O2SAT 97
[2017-07-10 15:34] VITALS: BP 101/63; PULSE 98; RESP 18; O2SAT 96
[2017-07-10 15:37] VITALS: BP 101/63; PULSE 98; RESP 18; O2SAT 96
--- NOTE | 2017-07-10 22:41 | ER ---
[address] [address] EMERGENCY DEPARTMENT REPORT PATIENT: IZABEL BERNABE : 1990 MR#: [id number] ADMIT: 07/10/2017 JOB ID: [id number] DATE OF SERVICE: CHIEF COMPLAINT/IDENTIFICATION: I have been asked by Larisa Coates in the emergency department to see this 26-year-old man with perianal Crohn's disease. HISTORY OF PRESENT ILLNESS: The patient has a longstanding history of perianal Crohn's disease. His GI doctor is Dr. Keller. He has been operated on by Dr. Tejada and most recently by Dr. Casanova during an emergency department visit on June 18, at which time fistulous tract was unroofed and the patient was to followup with General Surgery Clinic within one week. He tells me that he took he took his Flagyl as prescribed by Dr. Casanova, but called the Surgery Department and was told that they did not have an appointment that week. He has told me that he keeps all of his doctors appointments on his father's phone calender. He is not sure when his next appointment with Dr. Keller is, but he tells me he has been on Remicade for quite some time and there were plans to go from every six weeks to every four weeks. He did well after June 18, but over the past two days has felt increased swelling and discomfort around his buttocks in the perianal region. Drainage continues from the fistulous tract. PHYSICAL EXAMINATION: On examination, he does have an open fistulous tract with draining mucoid. There is some surrounding erythema, but there is no fluctuance, no particular tenderness externally. I have not repeated his rectal examination, which has been described to me by Larisa Coates as being uncomfortable, but she was able to perform it and did not feel any fullness in the rectal wall. His white count is 13.4 without a large left shift. Electrolytes are more or less normal, though his potassium is a little low at 3.4. IMAGING: He has had an abdominal CT today. I have reviewed the report, as well as the films. There is no clear abscess to drain, though I believe that you can visualize his fistulous tract. I have compared his imaging to the last CT we have from November. IMPRESSION AND PLAN: An unfortunate 26-year-old male with perianal Crohn's that seems not to be responding as ideally to his medical therapy. Toward the end of our discussion, his father has come in and I have asked him when the patient's appointment for the General Surgery Clinic is. It turns out that he does not have a General Surgery appointment at all scheduled and the patient appears a bit perturbed by this. My recommendation is for him to be seen in the General Surgery Clinic next week, but at this point, I think his primary issue needs to be to get back to see Dr. Keller for consideration of alternative medical therapies. His last colonoscopy was in 2015 according to the patient, and it may be that he has refractory disease that needs to be treated with alternative medical therapies. I have looked on the schedule and Dr. Keller is not cable installation manager, but I offered to contact the GI cable installation manager doc to facilitate getting in to see Dr. Keller this week. The patient's parents think this is a good idea, but the patient was quite adamant that he would call Dr. Keller's office. I emphasized the importance for him of close medical followup. I have left it with Larisa Coates that she might revisit the issue of trying to arrange his GI Clinic for followup prior to leaving the emergency department.
== END 2017-07-10 15:38 | disposition home or self-care (01) ==
LOC: SED 10:43
DX: K50.913 Crohn's disease, unspecified, with fistula (principal); F41.9 Anxiety disorder, unspecified
CPT/HCPCS: 36415; 74177; 80053; 81000; 81002; 85025; 96361; 96374; 96375; 99285; J1170; J1885; J2405; J7030; Q9967

== ENCOUNTER 2017-07-19 09:02 | Day surgery (SDC) | payer OTHER ==
[~2017-07-19] VITALS: Ht 172.7 cm; Wt 75.0 kg
[2017-07-19] VITALS (9 sets, daily range): BP systolic 112–124; BP diastolic 71–84; PULSE 80–95; RESP 13–17; O2SAT 97–100
[~2017-07-19 09:02] MED LIST changes: -CIPR-198 PO; +Lactated Ringer's 1,000 ML IV SCH; -METR250T PO
[2017-07-19] MEDS ORDERED: Dexamethasone 4 mg/mL Inj ONE (09:03)
[2017-07-19] MEDS ORDERED: Ondansetron 2 mg/mL 2 mL Inj ONE (09:03)
[2017-07-19] MEDS ORDERED: Ketamine 10 mg/mL 20 mL Inj ONE (09:03)
[2017-07-19] MEDS ORDERED: Propofol 10,000 mCg/mL 20 mL Inj ONE (09:03)
[2017-07-19] MEDS ORDERED: Lactated Ringer's 1,000 ML IV ONE (09:17)
--- NOTE | 2017-07-19 12:44 | PCM.HPANE ---
Patient Data Surgeon Admitting Provider: Attending Provider:Raya Daniels MD Primary Care Physician:Tian Emmanuel MD Other Provider:Nelson Corado Anesthesia Reason for Visit Anal Fistula, Crohn's Disease Ht/WT & BMI Height (Feet): 5 Height (Inches): 8.00 Weight (Kilograms): 75.000 Body Mass Index 25.00 Allergies Coded Allergies: adalimumab (Verified Adverse Reaction, Unknown, no reaction skin dryness due to disease process, 07/19/17) Past Anesthesia History Anesthesia History: Denies:: Abnormal Airway, Anesthesia Reactions, Difficult Intubation, Fam Anesthesia Reaction, Fam Malignant Hypertherm, Malignant Hyperthermia Diabetes History Hx Diabetes?: No MRSA MRSA: No Medications Home Meds Incl Beta Nevaeh: No Reported Medications Infliximab (Remicade)10 Mg/Ml [id number] Mg IV every 6 weeks 03/16/17 Lisdexamfetamine Dimesylate (Vyvanse)60 Mg [id number] Mg PO DAILY 30 Days Ref 0 03/16/[address] (Depakote DR)500 Mg Tablet1,500 Mg PO DAILY Ref 0 Swallowed whole without chewing to avoid local irritation of the mouth and throat. 03/14/17 Buspirone 15 Mg [id number] Mg PO BID Ref 0 03/14/17 Lurasidone (Latuda)120 Mg [id number] Mg PO DAILY 08/31/16 Discontinued Reported Medications Acetaminophen 500 Mg Tablet1,000 Mg PO Q6H PRN For Pain 07/10/17 History History of ENT Problems?: Yes HEENT History: Positive for:: Sinus Problem (sinus infection hx) Denies:: Abnormal Airway Difficult Intubation Dysphagia Hearing Problem TMJ Denture Type: None Teeth Condition: Within Normal Limits Hx of Heart Problems?: No Cardiovascular History: Positive for:: Irregular Heartbeat (PT REPORTS OCCAS PALPITATIONS) Denies:: AICD Atrial Fibrillation Chest Pain Congestive Heart Failure Hypertension Valvular Heart Disease Hx of Respiratory Problem?: No Respiratory History: Denies:: Asthma COPD Chest Surgery Cough Dyspnea Emphysema Hemoptysis Pneumonia Pulmonary Embolism Tuberculosis Use of C-PAP Machine Hx Neurologic Problems?: No Neurological History: Denies:: Alzheimer's Disease CVA Dementia Dizziness Headaches Multiple Sclerosis Parkinson's Disease Seizures TIA Hx of GI Problems?: No Hx of Problems?: No Genitourinary History: Denies:: HX of Hemodialysis Kidney Stones Urinary Tract Infection Male Hx: Denies:: Prostate Problems Scrotal Mass Testicular Surgery Skin History: Denies:: History Skin Disorders? (RASH on L lower leg) Pressure Ulcers Hx Musculoskeletal Problems?: No Musculoskeletal History: Denies:: Back Injury Degenerative Joint Joint Replacement Musculoskeletal Trauma Osteoarthritis Rheumatoid Arthritis Systemic Lupus Hx of Psycho/Social Problems?: Yes Psycho Social History: Positive for:: Anxiety Bipolar Disorder Denies:: Hx Depression Suicide Attempt Hx Surgeries?: Yes (Abdominal surgery 2006, I & D of perirectal abscesses) Hx Any Other Health Problems?: Yes Other History: Positive for:: Hospitalization (fistulas, all related to crohns ) Denies:: Cancer Endocrine Disease Thyroid Disease History Blood Transfusions: Positive for:: Accept Blood Products? Denies:: Blood Transfuse Reaction Blood Transfusions Hx Diabetes: No Hx Alcohol Use: NoHx Substance Use: No Smoking Status: Former Smoker Have You Smoked inLast 12 mo: No Stop/Bang Treated for Sleep Apnea?: No Do You Have a CPAP Machine?: No S-Snoring: Do You Snore Loudly: No T-Tired: feel tired, fatigued: Yes O-Obsered: Observed not breath: No P-Blood Pressure: treated: No B- Body Mass Index > 35 kg/m2: No A- Age over 50: No N- Neck Large Circumference: No G- Gender Male: Yes LINDSAY Total Score: 2 LINDSAY Risk Assessment: Low Risk, <3 Yes Risk Assessment Category Category 1A: Patient has history of documented sleep apnea, and HAS NOT received any narcotic, sedative or anesthesia administration during this stay. Category 1B: Patient has history of documented sleep apnea, and HAS received any narcotic , sedative or anesthesia administration during this stay Category 2: Patient has SUSPECTED Obstructive Sleep Apnea, and HAS received any narcotic , sedative or anesthesia administration during this stay. Category 3: Patient has SUSPECTED Obstructive Sleep Apnea and HAS NOT received narcotic, sedative or anesthesia administration during this stay. Category 4: Outpatient in Procedural Areas with known sleep apnea or who screen positive for High Risk via the STOP/BANG questionnaire. Exam Exam Vital Signs Vital Signs Date Time Temp Pulse Resp B/P Pulse Ox O2 Delivery O2 Flow Rate FiO2 07/19/17 09:18 36.1 89 17 118/77 99 Room Air General Appearance: Oriented X3 HEENT/AIRWAY: MP 2 Lungs: Normal Air Movement Heart: Regular Rate/Rhythm Meds/Labs/Diagnostics Admission Meds Current Medications Lactated Ringer's (Lr) 1,000 ml @ ud STK-MED ONCE IV Last administered on 07/19t 09:17; Start 07/19/17 at 09:17; Stop 07/19/17 at 09:18; Status DC Plan Impression Patient chart reviewed, patient interviewed and anesthestic plan with risks, benefits, and alternatives discussed, and informed consent obtained. ASA Physical Status: ASA2 Mod Systemic Disease Anesthetic Plan: GA Bene/Risks/Altern/Consents: Yes HP Complete Prior to Induction: Yes Archie Cloud MD Jul 19, 2017 12:44
[2017-07-19] MEDS ORDERED: EPHEDrine Sulfate 50 mg/mL Inj IVPUSH PRN (12:45)
[2017-07-19] MEDS ORDERED: Ondansetron 2 mg/mL 2 mL Inj IVPUSH PRN (12:45)
[2017-07-19] MEDS ORDERED: Phenylephrine 10,000 mCg/mL Inj IVPUSH PRN (12:45)
[2017-07-19] MEDS ORDERED: Lactated Ringer's 1,000 ML IV SCH (12:45)
[2017-07-19] MEDS ORDERED: Lactated Ringer's 500 ML IV PRN (12:45)
[2017-07-19] MEDS ORDERED: HYDROmorphone 1 mg/mL Inj IVPUSH PRN (12:45)
[2017-07-19] MEDS ORDERED: MetoCLOpramide 5 mg/mL 2 mL Inj IVPUSH PRN (12:45)
[2017-07-19] MEDS ORDERED: Dexamethasone 4 mg/mL Inj IVPUSH PRN (12:45)
[2017-07-19] MEDS ORDERED: Bupivacaine-MPF 0.5% 30 mL Inj INFILTRATE ONE (13:01)
[2017-07-19] MEDS ORDERED: oxyCODONE-Acetamin 5-325 mg Tablet PO PRN (14:00)
--- NOTE | 2017-07-19 14:00 | PCM.ANEP1 ---
Post Anesthesia PACU Phase 1 Assessment Vital Signs Vital Signs Date Time Temp Pulse Resp B/P Pulse Ox O2 Delivery O2 Flow Rate FiO2 07/19/17 13:56 80 14 114/75 100 Simple Mask 8 07/19/17 13:50 37.0 81 16 118/74 100 Simple Mask 8 07/19/17 09:18 36.1 89 17 118/77 99 Room Air Anesthetic Administered: GA Level of Alertness: Awake, talking Pain: No Nausea or Vomiting: No CV Function & Hydration Stable: Yes Airway Device: Oralpharangeal Airway Lungs: Normal Air Movement PACU Phase 2 Assessment Patient Instructions Provided: N/A Archie Cloud MD Jul 19, 2017 13:59
--- NOTE | 2017-07-19 14:05 | PCM.DISURG ---
Surgical Discharge Instruction Date of Service Jul 19, 2017 Dates of Hospitalization Date of Hospital Admission Providers Admitting Physician: Primary Care Physician: Tian Emmanuel MD Attending Physician: Raya Daniels MD Diet Discharge Diet: No restrictions Activity Discharge Activity-General: Be up and about, Activity as pain allows, No driving while taking narcotic Dressing and Incisional Care Dressing Care: Keep dressing clean, dry & intact Hygiene: May shower, Other (Keep skin and underwear dry by keeping the wound padded with gauze. The marco drain will stay in place until your follow up appointment. ) Additional Instructions Discharge Instructions - Ok to take sitz baths - Ensure your are eating a high fiber diet and taking miralax to promote smooth and soft bowel movements - Alternate between tylenol and ibuprofen around the clock, and take oxycodone only as needed for pain control - Call at any time with questions or concerns. Vadim Kendall MD Jul 19, 2017 14:04
[2017-07-19] MEDS: fentaNYL-PF 50 mCg/mL 2 mL Inj IVPUSH PRN ×2 (14:06→14:15)
--- NOTE | 2017-07-19 14:24 | OP ---
[address] [address] OPERATIVE REPORT PATIENT: IZABEL BERNABE : 1990 MR#: [id number] ADMIT: 07/19/2017 JOB ID: [id number] DATE OF SURGERY: 07/19/2017 SURGEON: Raya Daniels MD MASONRY SUPERVISOR: Gurdeep Ramires MD, R3; Margy Hull MS-III PREOPERATIVE DIAGNOSIS(ES): Perirectal fistula associated with Crohn disease. POSTOPERATIVE DIAGNOSIS(ES): Right ischiorectal abscess associated with Crohn disease. PROCEDURE PERFORMED: Incision and drainage of right ischiorectal abscess with Arcadia drain placement. HISTORY OF PRESENT ILLNESS: This is a 26-year-old male with Crohn disease who has had approximately nine previous operations on perirectal abscesses and fistulae associated with Crohn disease. The last was in February 2017. He presented with increasing induration and drainage from the right anterolateral position. Therefore consented for incision and drainage with probable seton placement. FINDINGS: 1. Significant perianal scarring from previous operations, especially at the left posterolateral position. 2. He had a large chronic abscess cavity without significant purulent drainage, with a chronically open draining sinus at the right anterolateral position. DESCRIPTION OF PROCEDURE: The patient was brought to the operating room and placed in supine position. General anesthesia was induced. A warming blanket was placed. The operative field was prepped and draped in sterile fashion after he was repositioned in the high lithotomy. A pause was performed to confirm the correct patient, procedure, and site. Examination under anesthesia revealed perianal scarring, worst at the left posterolateral position, and a chronically draining sinus of the right anterolateral position. There was a deep ischiorectal abscess at that position which was explored with a Cryoprobe. Hydrogen peroxide was injected into the abscess cavity to determine if there was a draining sinus within the rectal canal, which there was not. Because a fistula was not seen and only an abscess cavity with a single opening, the decision was made to create a counter incision at the right posterolateral position, for this point from the open draining sinus, in order to spare the Rose to assist with drainage as had been discussed preoperatively with the patient. A quarter-inch Arcadia was then threaded through the counter incision and the chronically draining tract, and was sewn to itself with a 2-0 nylon stitch. The abscess cavity was irrigated and local anesthetic was used at both the chronically draining sinus site as well as the new counter incision. The patient tolerated the procedure well. The pad was placed. He was taken to postoperative care unit in good condition. ESTIMATED BLOOD LOSS: 2 mL. SPECIMENS: None. COMPLICATIONS: None.
== END 2017-07-19 23:59 | disposition home or self-care (01) ==
LOC: SAS 09:02
PROVIDERS: ATTEND Surgery
DX: K50.813 Crohn's disease of both small and large intestine with fistula (principal); K61.3 Ischiorectal abscess; F90.9 Attention-deficit hyperactivity disorder, unspecified type; F32.9 Major depressive disorder, single episode, unspecified
CPT/HCPCS: 46040; J1100; J1170; J2250; J2405; J2704; J3010; J7120

== ENCOUNTER 2017-08-14 09:35 | Emergency (ER) | payer OTHER ==
[~2017-08-14] VITALS: Ht 172.7 cm; Wt 75.0 kg
[~2017-08-14 09:35] MED LIST changes: -Lactated Ringer's 1,000 ML IV SCH
[2017-08-14 09:47] VITALS: BP 148/85; PULSE 101; RESP 22; O2SAT 99
--- NOTE | 2017-08-14 10:10 | ED.REPORT ---
HPI-Dental/Mouth Prob Date of Service Aug 14, 2017 ED Provider: Steve Loving MD A 26 year old male with a history of Crohn's disease and anxiety presents to the ED complaining of facial swelling. The pt has had two root canals within the last two weeks. He had a REMICADE injection three days ago, then noticed facial swelling two days ago. The swelling has persisted and worsened since that point and the pt believes that it may be related to the injection. He denies fever, blurred vision or nausea. The pt was prescribed penicillin yesterday, but has not noticed any improvement since taking this medication. Nursing Notes Stated Complaint: FACIAL SWELLING AND PAIN Chief Complaint: General Complaint Nursing Notes Reviewed: Yes Allergies: Coded Allergies: No Known Allergies (Unverified , 08/14/17) Scheduled Buspirone (Buspirone) 15 Mg Tablet 15 MG PO BID Clindamycin (Clindamycin) 300 Mg Capsule 300 MG PO QID Divalproex DR (Depakote DR) 500 Mg Tablet 1,500 MG PO DAILY Swallowed whole without chewing to avoid local irritation of the mouth and throat. Infliximab (Remicade) 10 Mg/Ml Sdv 100 MG IV every 6 weeks Lisdexamfetamine Dimesylate (Vyvanse) 60 Mg Capsule 60 MG PO DAILY Lurasidone (Latuda) 120 Mg Tablet 120 MG PO DAILY Scheduled PRN Hydrocodone-Acetaminophen 5-325 mg (Hydrocodone-Acetaminophen 5-325 mg) 1 Each Tablet 1 TABLET PO Q4H PRN PRN For Pain General Time Seen by MD: 09:54 Chief Complaint Other (Facial swelling) Hx Obtained From: Patient Arrived By: Walk-in Onset Occurred: 2 days ago Symptom Duration: Since onset Recent Healthcare: Recent doctor visit Similar Sx Previous: No Past Medical History Past Medical History Notes: GI: Dr. Dewey Perirectal Abscess -> OR 09/2014 Past Medical History Crohn's disease with bowel resection History of perirectal abscess and fissures Anxiety ADHD Past Surgical History Ileocolonic resection in 2005 for Crohn's Perianal abscess drainage Colonoscopy in 2013 seton drain placed October 2016 Family History Autoimmune diseases in mother's side of the family Reports: Cancer Smoking History Former Smoker Social History Alcohol Use: Denies alcohol use Drug Use: THC Other Social History: Good social support, Lives with parents, Local resident Occupation no work or school 07/10/2017 Ambulatory Status Independent Review of Systems Review of Systems Note: facial swelling Constitutional: Denies: Fever Respiratory: Denies: Non-productive cough, Shortness of breath GI: Denies: Abdominal pain, Nausea, Vomiting Complete sys rev & neg: except as marked. Eyes: Denies: Blurred bilateral Cardiovascular: Denies: Chest pain Musculoskeletal: Denies: Back pain, Neck pain Skin: Denies Rash Physical Exam Initial Vital Signs Vital Signs (First) Date Time Temp Pulse Resp B/P Pulse Ox O2 Delivery O2 Flow Rate FiO2 08/14/17 09:47 36.9 101 22 148/85 99 Room Air Initial VS: Reviewed ENT: Airway patent, Mucous membranes moist no abscesses appreciated in oropharynx tenderness of the right upper molars no fluctuance or discharge no evidence of abscess Neck: Atraumatic, Supple, Full range of motion General/Constitutional: Awake, Alert Head / Eyes: Normocephalic, PERRL, EOMI right facial swelling just below the right eye orbit and right maxillary area Respiratory / Chest: Atraumatic, Breath sounds NL, Breath sounds = bilat, No respiratory distress Cardiovascular: Heart rate NL, Regular rhythm, Heart sounds NL Neurologic: Oriented X3, Speech NL, No motor deficits, No sensory deficits Abdomen: Atraumatic, Soft, Non-tender Back: Atraumatic, Full range of motion Upper Extremity / MS: Atraumatic, Full range of motion Lower Extremity / Pelvis / MS: Atraumatic, Full range of motion Skin: Color NL, No rash, Warm, Dry Psychiatric: Affect NL, Mood NL Interpretation & Diagnostics Interpretation & Diagnostics: CT Face: IMPRESSION: 1. Right premaxillary/john-mandible soft tissue swelling consistent with cellulitis. 2. Right maxillary, ethmoid and frontal sinusitis. Dictated by: Luz Elena Simon M.D. on 08/14/2017 at 12:02 Approved by: Luz Elena Simon M.D. on 08/14/2017 at 12:16 Lab Results Interpretation Result Diagram: 08/14/17 1030 08/14/17 1030 Test 08/14/17 10:30 White Blood Count 17.3th/mm3 (3.8-10.1) Red Blood Count 3.54mil/mm3 (4.40-5.80) Hemoglobin 11.5g/dL (13.8-17.2) Hematocrit 33.7% (41.0-50.0) Mean Corpuscular Volume 95.2fL (81-100) Mean Corpuscular Hemoglobin 32.5pg (27.0-35.0) Mean Corpuscular Hemoglobin Concent 34.1% (32.0-37.0) Red Cell Distribution Width 15.0% (12.3-15.4) Platelet Count 374bil/L (150-400) Neutrophils (%) (Auto) 66.4% (40-74) Lymphocytes (%) (Auto) 15.9% (14-46) Monocytes (%) (Auto) 16.9% (4-12) Eosinophils (%) (Auto) 0.3% (0-5) Basophils (%) (Auto) 0.2% (0-3) Sodium Level 137mEq/L (134-144) Potassium Level 3.9mEq/L (3.5-5.2) Chloride Level 100mEq/L (97-108) Carbon Dioxide Level 21mmol/L (18-29) Blood Urea Nitrogen 4mg/dL (6-20) Creatinine 0.57mg/dL (0.76-1.27) Estimat Glomerular Filtration Rate 181mL/min (>59) Glucose Level 69mg/dL (60-99) Calcium Level 8.7mg/dL (8.5-10.1) Total Bilirubin 0.2mg/dL (0.0-1.2) Aspartate Amino Transf (AST/SGOT) 24U/L (0-50) Alanine Aminotransferase (ALT/SGPT) 24U/L (0-44) Alkaline Phosphatase 77U/L (25-150) Total Protein 7.3g/dL (6.4-8.4) Albumin 3.5g/dL (3.4-5.0) Hold Gutierrez Top Tube Received (Received) Re-Eval/Medical Decision Med Decision/Clinical Course 26-year-old male with right facial swelling status post dental procedure. CT scan of the face showed no abscess. There reported questionable cellulitis though he has no cellulitis on exam. He does have mild facial swelling. They also reported sinusitis. He was given 1 dose of IV Unasyn. I did offer him admission given his immunosuppressed history with Crohn's disease on Remicade. Patient requested to go home he agrees to return immediately if he has any new or worsening symptoms. Return precautions given. Discharged on clindamycin. No evidence of sepsis at time of discharge. Source of Hx: Old records Re-Evaluation/Progress : Time of Eval: 13:02 Patient Status: Condition improved Re-Evaluation/Progress Note: Pt rechecked, who is resting. The pt does not want to be admitted and requests discharge. He agrees to return if his condition worsens. The diagnosis and plan for discharge are discussed. The pt understands and agrees with the plan. All questions are addressed at this time. Counseled Regarding: Diagnosis, Lab results, Need for follow-up, When/why to return to ED Discharge & Departure Primary Impression: Cellulitis Site of cellulitis: face Qualified Code: L03.211 - Cellulitis of face Additional Impression: Sinusitis Sinusitis location: unspecified location Chronicity: acute Recurrence: non -recurrent Qualified Code: J01.90 - Acute sinusitis, unspecified Disposition: Home Discharge Condition All VS Reviewed: Yes Condition: Stable Patient Instructions: Cellulitis (ED), Sinusitis (ED) Additional Instructions: Thank you for entrusting us with your care. Take Clindamycin as prescribed. Call your primary care physician and dentist to arrange follow up appointments tomorrow. You have decided to go home and return immediately if you develop any new or worsening symptoms such as fever, worsening swelling, vomiting, weakness or redness. Referrals: Tian Emmanuel MD (PCP) Scribe Attestation Portions of this note were transcribed by Sam De. I, Dr. Loving personally performed the history, physical exam and medical decision-making; I reviewed and confirmed the accuracy of the information in the transcribed note. copies to: Tian Emmanuel MD, Ben M MD Aug 14, 2017 10:10 SAM DE Aug 14, 2017 11:30
[2017-08-14] MEDS ORDERED: Ondansetron 2 mg/mL 2 mL Inj IVPUSH PRN (10:15)
[2017-08-14] MEDS ORDERED: 0.9% Sodium Chloride 1,000 ML IV ONE (10:15)
[2017-08-14 10:37] LABS: BASOPHILS % (AUTO) 0.2 % (0-3); EOSINOPHILS % (AUTO) 0.3 % (0-5); MONOCYTES % (AUTO) 16.9 % (4-12); Mean Corpuscular Hemoglobin 32.5 pg (27.0-35.0); Mean Corpuscular Volume 95.2 fL (81-100); NEUTROPHILS % (AUTO) 66.4 % (40-74); Platelet Count 374 bil/L (150-400)
--- NOTE | 2017-08-14 12:18 | DRSVH ---
PROCEDURE: CT FACE WITH CONTRAST ([id number]) INDICATIONS: R facial swelling s/p dental surg TECHNIQUE: After the administration of intravenous contrast, 3.0 mm axial sections acquired from the mid-neck to the frontal sinuses, with coronal reformatting. For radiation dose reduction, the following was use d: automated exposure control. COMPARISON: None. FINDINGS: Image quality: Excellent. Soft tissues: There is right premaxillary/john-mandible soft tissue swelling consistent with cellulit is. No subcutaneous fluid collection. No enlarged lymph nodes. Vascular: Visualized vascular structures appear patent throughout. Bony vascular foramina and canal s appear normal. Bones: Facial bones appear intact, without fractures, erosions, or destruction. Visualized portions of the skull base and auditory canals also appear normal. Sinuses: The right maxillary sinus is near-completely opacified with a large air-fluid level. Air-flu id level is also seen in the right frontal sinus. There is mucosal thickening in the right ethmoid si nus. There is a small mucus retention cyst in the left maxillary sinus. Mastoid air cells are aerate d. IMPRESSION: 1. Right premaxillary/john-mandible soft tissue swelling consistent with cellulitis. 2. Right maxillary, ethmoid and frontal sinusitis. Dictated by: Luz Elena Simon M.D. on 08/14/2017 at 12:02 Approved by: Luz Elena Simon M.D. on 08/14/2017 at 12:16
[2017-08-14] MEDS ORDERED: Ampicillin-Sulbactam Inj 3,000 MG in 0.9% Sodium Chloride 100 ML IV ONE (12:25)
[2017-08-14] MEDS ORDERED: CLIN-78 PO (13:08)
[2017-08-14 13:13] VITALS: BP 120/77; PULSE 103; RESP 16; O2SAT 96
[2017-08-14] MEDS ORDERED: HYDR-4003 PO (13:40)
== END 2017-08-14 13:17 | disposition home or self-care (01) ==
LOC: SED 09:35
DX: L03.211 Cellulitis of face (principal); J01.90 Acute sinusitis, unspecified; K50.90 Crohn's disease, unspecified, without complications; F41.9 Anxiety disorder, unspecified; F90.9 Attention-deficit hyperactivity disorder, unspecified type; Z87.891 Personal history of nicotine dependence
CPT/HCPCS: 36415; 70487; 80053; 85025; 96361; 96365; 96375; 96376; 99285; J0295; J1885; J2270; J2405; J7030; Q9967

== ENCOUNTER 2017-08-16 21:38 | Emergency (ER) | payer OTHER ==
[~2017-08-16] VITALS: Ht 172.7 cm; Wt 75.0 kg
[~2017-08-16 21:38] MED LIST changes: +CLIN-78 PO; +HYDR-4003 PO
[2017-08-16 21:47] VITALS: BP 123/80; PULSE 96; RESP 16; O2SAT 98
--- NOTE | 2017-08-16 21:58 | ED.REPORT ---
HPI-General Illness Date of Service Aug 16, 2017 ED Provider: Conrad Ferrer MD Pt is a 26 year old male with a history of abscesses and Chron's disease on [employer] who presents to the ED complaining of drainage in his right sinus onset tonight. Pt was seen in the ED two days ago with facial swelling after dental procedures. He had a white blood cell count of 17,000 and had right premaxillary and john-mandible soft tissue swelling consistent with cellulitis. He states that he has been taking the Clindamyacin as prescribed, but has noticed increased swelling in his face and gum line. Pt then states that his father touched his face, and he felt drainage coming from his right sinus. He denies any fevers, and has not seen a dentist or oral surgeon since being discharged. Nursing Notes Stated Complaint: ABCESS/RIGHT UPPER SIDE Chief Complaint: Skin Rash/Abscess Nursing Notes Reviewed: Yes Allergies: Coded Allergies: No Known Allergies (Unverified , 08/16/17) Scheduled Buspirone (Buspirone) 15 Mg Tablet 15 MG PO BID Clindamycin (Clindamycin) 300 Mg Capsule 300 MG PO QID Divalproex DR (Depakote DR) 500 Mg Tablet 1,500 MG PO DAILY Swallowed whole without chewing to avoid local irritation of the mouth and throat. Infliximab (Remicade) 10 Mg/Ml Sdv 100 MG IV every 6 weeks Lisdexamfetamine Dimesylate (Vyvanse) 60 Mg Capsule 60 MG PO DAILY Lurasidone (Latuda) 120 Mg Tablet 120 MG PO DAILY Scheduled PRN Hydrocodone-Acetaminophen 5-325 mg (Hydrocodone-Acetaminophen 5-325 mg) 1 Each Tablet 1 TABLET PO Q4H PRN PRN For Pain General Time Seen by MD: 21:54 Chief Complaint Other (Drainage from abscess in right sinus ) Hx Obtained From: Patient Arrived By: Walk-in Sudden in Onset?: Yes Onset Occurred: 1 - 4 hours ago Symptom Duration: Constant Recent Healthcare: Recent doctor visit Similar Sx Previous: Yes Past Medical History Past Medical History Notes: PCP: Dr. Tian Emmanuel GI: Dr. Dewey Perirectal Abscess -> OR 09/2014 Past Medical History Crohn's disease with bowel resection History of perirectal abscess and fissures Anxiety ADHD Past Surgical History Ileocolonic resection in 2005 for Crohn's Perianal abscess drainage Colonoscopy in 2013 seton drain placed October 2016 Family History Autoimmune diseases in mother's side of the family Reports: Cancer Smoking History Former Smoker Social History Alcohol Use: Denies alcohol use Drug Use: THC Other Social History: Good social support, Lives with parents, Local resident Occupation no work or school 07/10/2017 Ambulatory Status Independent Review of Systems Increased facial swelling Increased gum swelling Drainage from right sinus Full Review of Systems Constitutional: Denies: Fever Ears / Nose / Throat: Reports: Sinus problem Complete sys rev & neg: except as marked. Physical Exam Vital Signs Vital Signs Date Time Temp Pulse Resp B/P Pulse Ox O2 Delivery O2 Flow Rate FiO2 08/16/17 23:07 36.9 89 16 126/82 99 Room Air 08/16/17 21:47 37.0 96 16 123/80 98 Room Air Initial VS: Reviewed Neck: Supple, Full range of motion Respiratory: No respiratory distress Extremities: Vascular intact, Neuro intact, No swelling, No tenderness Skin: Warm, Dry, No cyanosis Neurologic: Alert, Oriented, Nonfocal Psychiatric: Mood/affect normal, Behavior normal, Normal thought content General/Constitutional: Awake, Alert Head / Eyes: Atraumatic, Normocephalic, EOMI ENT: Airway patent Right maxillary swelling Purulent discharge coming from gum above upper canine on the right side. There is some swelling in the soft tissues superior to this. Pus is gently expressed until no more drainage. Neck: Supple, Full range of motion No cervical adenopathy Interpretation & Diagnostics Lab Results Interpretation Result Diagram: 08/16/17 2221 Test 08/16/17 22:21 White Blood Count 15.8th/mm3 (3.8-10.1) Red Blood Count 3.32mil/mm3 (4.40-5.80) Hemoglobin 10.6g/dL (13.8-17.2) Hematocrit 31.4% (41.0-50.0) Mean Corpuscular Volume 94.6fL (81-100) Mean Corpuscular Hemoglobin 31.9pg (27.0-35.0) Mean Corpuscular Hemoglobin Concent 33.8% (32.0-37.0) Red Cell Distribution Width 14.8% (12.3-15.4) Platelet Count 459bil/L (150-400) Neutrophils (%) (Auto) 58.6% (40-74) Lymphocytes (%) (Auto) 27.0% (14-46) Monocytes (%) (Auto) 12.7% (4-12) Eosinophils (%) (Auto) 1.1% (0-5) Basophils (%) (Auto) 0.3% (0-3) Hold Gutierrez Top Tube Received (Received) Re-Eval/Medical Decision Med Decision/Clinical Course Immunocompromised due to remicaid. Looks well, no Sahil's, WBC trending down. Has a small ondontogenic abscess that has drained spontaneously. Source of Hx: Old records Time of Eval: 22:49 Patient Status: Condition improved Re-Evaluation/Progress Note: Patient rechecked. Discussed plan for discharge. Patient understands and agrees with plan. F/U instructions and RTER warnings given. All questions addressed at this time. Counseled Regarding: Diagnosis, Lab results, Need for follow-up, When/why to return to ED Discharge & Departure Primary Impression: Dental abscess Disposition: Home Discharge Condition All VS Reviewed: Yes Condition: Stable Additional Instructions: Emergency department course included interview examination and blood count. Examination and blood count are reassuring at present. There is a dental abscess that is draining spontaneously. Recommend a soft diet and antiseptic mouth wash after eating. Continue clindamycin and penicillin, follow-up with your dentist as soon as possible. Return to emergency department for fever or shaking chills increasing facial swelling. Thanks for dressing us with your care tonight Referrals: Tian Emmanuel MD (PCP) Scribe Attestation Portions of this note were transcribed by Ely Acharya. I, Dr. Ferrer, personally performed the history, physical exam and medical decision-making; I reviewed and confirmed the accuracy of the information in the transcribed note. copies to: Tian Emmanuel MD, Donald L MD Aug 16, 2017 21:58 Ely Acharya Aug 16, 2017 22:07
[2017-08-16 22:28] LABS: BASOPHILS % (AUTO) 0.3 % (0-3); EOSINOPHILS % (AUTO) 1.1 % (0-5); MONOCYTES % (AUTO) 12.7 % (4-12); Mean Corpuscular Hemoglobin 31.9 pg (27.0-35.0); Mean Corpuscular Volume 94.6 fL (81-100); NEUTROPHILS % (AUTO) 58.6 % (40-74); Platelet Count 459 bil/L (150-400)
[2017-08-16 23:07] VITALS: BP 126/82; PULSE 89; RESP 16; O2SAT 99
== END 2017-08-16 23:08 | disposition home or self-care (01) ==
LOC: SED 21:38
DX: K04.7 Periapical abscess without sinus (principal); K50.90 Crohn's disease, unspecified, without complications; F41.9 Anxiety disorder, unspecified; F90.9 Attention-deficit hyperactivity disorder, unspecified type; Z87.891 Personal history of nicotine dependence; Z87.19 Personal history of other diseases of the digestive system